=== PATIENT | female | born 1975 | race Caucasian/White ===

== ENCOUNTER 2021-08-22 01:33 | Emergency (ER) | payer OTHER, SELFPAY ==
[2021-08-22 01:34] VITALS: BP 134/89; PULSE 66; RESP 18; TEMP 36.4; O2SAT 100; BMI 26.6
--- NOTE | 2021-08-22 07:52 | EDS_ITS ---
HPI History of Present Illness Chief Complaint: Dizziness Narrative Narrative: Patient is a 46-year-old female with history of trigeminal neuralgia who takes carbamazepine. She states ever since starting this medication she is had a low sodium value. She states that her value typically runs approximately 123. She states today she was outside working in the yard in the hot weather and began to get lightheaded and dizzy. She states that she went inside but because there was no power she did not have a reprieve from the symptoms and whether. She states she tried drinking pickle juice to increase her salt intake as this is helped in the past but there was no improvement and therefore she was advised to come to the hospital for evaluation [facility] Medical History Hyponatremia Home Medications carbamazepine 300 mg capsule,extended release [id number] 300 mg PO BID 08/22/21 [History Last Taken Unknown] Allergy/AdvReac Type Severity Reaction Status Date / Time codeine AdvReac Vomiting Verified 08/22/21 01:38 Social History Smoking Status: Current every day smoker tobacco type: cigarettes ROS ROS ED Constitutional Constitutional ED: Denies chills or fever(s) ENT ENT ED: Denies sore throat Cardiovascular Cardiovascular: Denies chest pain Respiratory/Chest Respiratory/Chest: Denies cough or dyspnea Gastrointestinal Gastrointestinal: Reports nausea; Denies abdominal pain, diarrhea or vomiting Genitourinary Genitourinary ED: Denies dysuria Musculoskeletal Musculoskeletal: Denies myalgias Integumentary Denies rash Neurologic Neurologic: Reports other Details: Positive dizziness ; Denies headache(s) Psychiatric Psychiatric: Reports anxiety Hematologic/Lymphatic Hematologic/Lymphatic: Denies easy bleeding or easy bruising EXAM Physical Exam Const Vital Signs: 08/22/21 01:34 08/22/21 01:38 Temperature 97.5 F L Temperature Source Oral Pulse Rate 66 Respiratory Rate 18 Respiratory Effort Normal Non-Labored Respiratory Pattern Normal Blood Pressure 134/89 H Blood Pressure Mean 104 Pulse Ox 100 Oxygen Delivery Method Room Air Positive well nourished and well developed General Appearance ED: well developed HEENT Reports TM's clear and dry mucous membranes Tympanic Membrane ED: Yes TM's clear Mouth ED: Yes dry mucous membranes Mouth: dry mucous membranes Eyes PERRL and EOMs intact bilaterally Neck supple Resp normal respiratory effort and clear to auscultation bilaterally Cardio regular rate and regular rhythm GI normal to inspection, nondistended, normoactive bowel sounds, non-tender and non-distended Auscultation: normoactive bowel sounds Palpation: soft Extremity normal to inspection Neuro oriented x3 and CN's II-XII intact bilaterally Neuro Narrative: Cranial nerves II through XII are grossly intact without focal neurologic deficits. No truncal ataxia no pronator drift no dysmetria. There is mild horizontal nystagmus noted. NIH stroke scale score of 0 Sensorium / Orientation: alert Psych mental status grossly normal Skin no rashes or lesions noted Skin Narrative: Skin turgor slightly increased MDM MDM MDM Narrative Medical decision making narrative: Patient presented to the ER in no acute distress with no focal neurologic deficit. With her history of hyponatremia there was concern this was a cause of her symptoms so basic blood work was obtained and she was given IV fluids. The patient sodium came back low at 118 however she states her baseline is approximately 123. Therefore she is only 5 points off what she reports as her normal. She was given 2 L of normal saline and did report feeling better. She was able to ambulate with a steady gait and her neuro exam remained normal. We discussed possible admission based on her hyponatremia but as she was only 5 points off her baseline and now has resolution of symptoms with IV fluids I do not feel it is necessary for patient to be admitted. Patient does agree with this plan and wishes to return home as well. Therefore patient will be provided Zofran to help with any further bouts of nausea but as she is able to walk with a steady gait has resolution of symptoms and persistently normal neuro exam she will be discharged home Discharge Plan Triage Chief Complaint: Dizziness ED Provider: Jonathon Soliman Dx/Rx/DC Orders Clinical Impression: Hyponatremia, Dizziness Prescriptions: No Action carbamazepine 300 mg capsule, ER multiphase 12 hr 300 mg PO BID Label Comments: TAKE 1 CAPSULE BY MOUTH TWICE DAILY Primary Care Provider: Jose Miguel Holland Referrals: Jose Miguel Holland MD [Primary Care Provider] - Disposition Disposition: Home, Self Care Discharge Date/Time: 08/22/21 04:50
[2021-08-22 12:09] LABS: Hematocrit 34.6 % (37-47); Hemoglobin 12.8 g/dL (12.0-15.0); Mean Corpuscular Volume 86.5 fL (81-99); Mean Platelet Vol. 9.2 fl (6.2-12.0); Platelet Count 215 K/mm3 (150-450); RBC Distribution Width CV 11.6 % (11.6-14.6); RBC Distribution Width SD 37.2 fl (35.1-43.9); White Blood Count 7.4 K/mm3 (4.4-11.0)
[2021-08-22 12:10] LABS: Absolute Lymphocyte Count 1.51 X10^3/uL (0.83-4.51); Absolute Neutrophil Count 5.4 X10^3/uL (2.0-7.7); Basophil# 0.02 X10^3/uL; Basophil% 0.3 % (0-1); Eosinophil# 0.04 X10^3/uL; Eosinophils% 0.5 % (0-5); Lymphocyte # 1.51 X10^3/ul (0.83-4.51); Lymphocyte % 20.4 % (19-41); Monocyte# 0.41 X10^3/uL; Monocyte% 5.5 % (0-10); NRBC Flagged by Analyzer 0 % (0-5)
[2021-08-22 12:47] LABS: BUN 6 mg/dL (7-18); BUN/Creat Ratio 9.8 RATIO (10-20); Calcium,Total 8.2 mg/dL (8.5-10.1); Creatinine, Serum 0.61 mg/dL (0.55-1.02); EST Glomerular Filtration Rate 111 mL/min (>60); Est Glom Filt Rate - Afr Amer 135 mL/min (>60); Estimated Creatinine Clearance 101.49 ml/min; Glucose 106 mg/dL (74-106); Magnesium 1.5 mg/dL (1.6-2.6)
[2021-08-22 12:48] LABS: Anion Gap 10 (5-15); Chloride 86 mmol/L (98-107); Potassium 3.3 mmol/L (3.5-5.1); Sodium Level 118 mmol/L (136-145)
== END 2021-08-22 04:50 | disposition home or self-care (01) ==
PROVIDERS: Emergency Provider Emergency Medicine; PCP Family Medicine; Visit Provider Emergency Medicine
DX: E87.1 Hypo-osmolality and hyponatremia (principal); F17.210 Nicotine dependence, cigarettes, uncomplicated; G50.0 Trigeminal neuralgia; Z79.899 Other long term (current) drug therapy
CPT/HCPCS: 80048; 83735; 85025; 96361; 96374; 99283; J7030; A4216; J2405

== ENCOUNTER 2021-10-20 21:07 | Emergency (ER) | payer OTHER, SELFPAY ==
[2021-10-20 21:08] VITALS: BP 145/82; PULSE 72; RESP 15; TEMP 36.4; O2SAT 100; O2SAT 98; BMI 30.4
--- NOTE | 2021-10-20 21:38 | EKG12_ITS ---
Test Reason : CP Blood Pressure : / mmHG Vent. Rate : 073 BPM Atrial Rate : 073 BPM P-R Int : 176 ms QRS Dur : 074 ms QT Int : 384 ms P-R-T Axes : 033 059 017 degrees QTc Int : 423 ms Normal sinus rhythm Nonspecific ST and T wave abnormality Confirmed by JOANNA LEON, HOMAR ([id number]), photo editor JEREMI BEARD ([id number]) on 10/22/2021 10:04:42 AM Referred By: JAMILA Confirmed By:HOMAR MARSHALL MD
--- NOTE | 2021-10-20 21:47 | EX.ED.DYSGE1 ---
HPI History of Present Illness Chief Complaint: Chest Pain Informant: patient Narrative Narrative: 46-year-old female states that today while garage sailing she would get intermittent left anterior chest pain described as a pinch. It was not debilitating so she continued on her day. Around 2000 hours she was sitting down for dinner when she got a wave of warmth up her neck and into her head. Traveled down her arms and she became acutely nauseous. She states that sensation in her chest continued. She did not vomit. She notes that if she takes a deep breath she feels that pinch sensation recur. She notes that chest is not tender and is not made worse with movement. She notes that she has a dental abscess and was wondering about antibiotics as she has a dentist appointment on the . She denies any fevers. She is not having any trismus. She notes that she has a history of hyponatremia. She is on Tegretol for trigeminal neuralgia. PFSH PFSH Medical History Hyponatremia Smoker Home Medications carbamazepine 300 mg capsule,extended release [id number] 300 mg PO BID 08/22/21 [History Last Taken Unknown] penicillin V potassium 250 mg tablet 500 mg PO 4X/DAY #40 tabs 10/20/21 [Rx Last Taken Unknown] promethazine 25 mg tablet 25 mg PO Q6H PRN PRN Nausea #20 TABLETS 10/20/21 [Rx Last Taken Unknown] Allergy/AdvReac Type Severity Reaction Status Date / Time codeine AdvReac Vomiting Verified 10/20/21 21:08 Social History (Updated 10/20/21 @ 21:[address] Mick Pardo, DO) Smoking Status: Current every day smoker tobacco type: cigarettes substance use type: does not use ROS ROS ED Constitutional Constitutional ED: Denies chills or weight loss Eyes Eyes: Denies change in vision or diplopia ENT ENT ED: Reports other Details: Dental abscess ; Denies ear pain, rhinorrhea or sore throat Cardiovascular Cardiovascular: Reports chest pain; Denies orthopnea, palpitations or racing heartbeat Respiratory/Chest Respiratory/Chest: Denies cough, dyspnea or orthopnea Gastrointestinal Gastrointestinal: Reports nausea; Denies abdominal pain, diarrhea or vomiting Genitourinary Genitourinary ED: Denies dysuria, hematuria or urinary frequency Musculoskeletal Musculoskeletal: Denies arthralgias or myalgias Integumentary Denies abscess or rash Neurologic Neurologic: Reports paresthesias; Denies headache(s) or weakness Psychiatric Psychiatric: Denies anxiety, depression, suicidal ideation or suicidal thoughts Endocrine Endocrinology: Denies polydipsia, polyphagia or polyuria Allergic/Immunologic Allergic/Immunologic ED: Denies mouth swelling, tongue swelling or urticaria EXAM Physical Exam Const Vital Signs: 10/20/21 21:08 10/20/21 21:08 Temperature 97.5 F L Temperature Source Temporal Pulse Rate 72 72 Respiratory Rate 15 15 Blood Pressure 145/82 H 145/82 H Blood Pressure Mean 103 103 Pulse Ox 100 98 Oxygen Delivery Method Room Air Room Air Positive well nourished and well developed General Appearance ED: well developed HEENT Reports normocephalic, head/scalp atraumatic and moist mucous membranes HEENT Narrative: Patient has multiple teeth that are missing. The remaining teeth to show evidence of significant decay. Right lower most likely a premolar remnant shows tenderness to palpation. There is swelling along the gumline but no fluctuance. There is no trismus. Floor the mouth is soft. Eyes PERRL and EOMs intact bilaterally Neck no lymphadenopathy, supple and no JVD Resp normal respiratory effort and clear to auscultation bilaterally Cardio regular rate, regular rhythm and no murmurs GI normal to inspection, nondistended, normoactive bowel sounds and non-tender Palpation: soft Back/Spine no CVA tenderness and normal ROM Extremity normal to inspection General Extremety ED: Negative for edema General Extremity: Negative for edema Neuro oriented x3 and CN's II-XII intact bilaterally Sensorium / Orientation: alert Motor Exam: strength 5/5 throughout Psych mental status grossly normal Mood & Affect: Negative for depressed or tearful Skin no rashes or lesions noted and no wounds MDM MDM MDM Narrative Medical decision making narrative: CBC BMP showed glucose 125. Sodium 124 chloride of 92. D-dimer 0.31 and troponin is 4. By interpretation of the chest x-ray is no acute process. Patient has had no events on the monitor. She still nauseated and her redosed her with Zofran. She does have a prescription for Zofran at home. Also going to write her for her to have penicillin. Lab Data Attestation: I reviewed the patient's lab results. Labs: Laboratory Results - last 24 hr 08/13/22 08/13/22 08/13/22 21:25 21:25 21:25 WBC 6.9 RBC 3.92 L Hgb 12.3 Hct 34.8 L MCV 88.8 MCH 31.4 MCHC 35.3 RDW Std Deviation 38.8 RDW Coeff of Huang 12.0 Plt Count 207 MPV 9.0 Immature Gran % (Auto) 0.400 Neut % (Auto) 59.0 Lymph % (Auto) 32.9 [place] % (Auto) 6.2 Eos % (Auto) 1.2 Baso % (Auto) 0.3 Absolute Neuts (auto) 4.1 Absolute Lymphs (auto) 2.27 Nucleated RBC % 0 D-Dimer Quant (PE/DVT) 0.31 Sodium 124 L Potassium 3.2 L Chloride 92 L Carbon Dioxide 23.0 Anion Gap 9 BUN 7 Creatinine 0.63 Estim Creat Clear Calc 98.27 Est GFR (MDRD) Af Amer 130 Est GFR (MDRD) Non-Af 107 BUN/Creatinine Ratio 11.1 Glucose 125 H Calcium 8.1 L Total Bilirubin 0.50 AST 17 ALT 20 Alkaline Phosphatase 58 Troponin I High Sens 4 Total Protein 6.1 L Albumin 3.5 Globulin 2.6 Albumin/Globulin Ratio 1.3 Radiography Diagnostic Testing: Clinical Impression(s) from Imaging Studies Chest X-Ray 10/20/21 22:05 IMPRESSION: Normal x-ray examination of the chest. Electronically Signed: Tre Jorge MD at 22:19 EDT , EKG Initial EKG: Attestation: I personally reviewed and interpreted this EKG as follows: Discharge Plan Triage Chief Complaint: Chest Pain ED Provider: Mick Pardo Dx/Rx/DC Orders Clinical Impression: Abscess, dental, Chest pain, Vasovagal episode, Nausea Instructions: ED Chest Pain, Uncertain Cause, ED Near-Fainting- Vagal Reaction Prescriptions: New penicillin V potassium 250 mg tablet 500 mg PO 4X/DAY Qty: 40 0RF promethazine [promethazine] 25 mg tablet 25 mg PO Q6H PRN PRN (Reason: Nausea) Qty: 20 0RF No Action carbamazepine 300 mg capsule, ER multiphase 12 hr 300 mg PO BID Label Comments: TAKE 1 CAPSULE BY MOUTH TWICE DAILY Primary Care Provider: Jose Miguel Holland Referrals: Jose Miguel Holland MD [Primary Care Provider] -
[2021-10-20 21:49] LABS: Absolute Lymphocyte Count 2.27 X10^3/uL (0.83-4.51); Absolute Neutrophil Count 4.1 X10^3/uL (2.0-7.7); Basophil# 0.02 X10^3/uL; Basophil% 0.3 % (0-1); Eosinophil# 0.08 X10^3/uL; Eosinophils% 1.2 % (0-5); Hematocrit 34.8 % (37-47); Hemoglobin 12.3 g/dL (12.0-15.0); Lymphocyte # 2.27 X10^3/ul (0.83-4.51); Lymphocyte % 32.9 % (19-41); Mean Corp Hgb Conc 35.3 g/dL (32-36); Mean Corpuscular Hgb 31.4 pg (27.0-32.0); Mean Corpuscular Volume 88.8 fL (81-99); Monocyte# 0.43 X10^3/uL; Monocyte% 6.2 % (0-10); NRBC Flagged by Analyzer 0 % (0-5); Neutrophil # 4.08 X10^3/uL (2.7-7.7); Platelet Count 207 K/mm3 (150-450); RBC Distribution Width SD 38.8 fl (35.1-43.9); Red Blood Count 3.92 M/mm3 (4.2-5.4); White Blood Count 6.9 K/mm3 (4.4-11.0)
[2021-10-20] MEDS: Penicillin Vk 250 MG Tablet 500 MG PO (21:50)
[2021-10-20] MEDS: Ondansetron 4 MG/2 ML Vial IV ×2 (21:50→22:54)
--- NOTE | 2021-10-20 22:05 | RAD_ITS ---
STUDY: X-RAY CHEST REASON FOR EXAM: Female, 46 years old. chest pain TECHNIQUE: Single AP portable view of the chest. COMPARISON: None. FINDINGS: The lungs are clear and expanded. There is no demonstrated pleural abnormality. Normal size heart. Normal mediastinum and usman. Normal visualized pulmonary arteries. Normal visualized aortic arch and descending thoracic aorta. Normal visualized thoracic spine. Normal visualized ribs, clavicles, and shoulders. There is no demonstrated abnormality of the visualized soft tissue structures of the upper abdomen. RAD/Chest 1 View (Portable) IMPRESSION: Normal x-ray examination of the chest. Electronically Signed: Tre Jorge MD at 22:19 EDT ,
[2021-10-20 22:11] LABS: D-Dimer Quantitative (DVT/PE) 0.31 FEU/ug/m (0.27-0.49)
[2021-10-20 22:12] LABS: ALB/GLOB Ratio 1.3 RATIO (0.9-2.4); AST(SGOT) 17 U/L (15-37); Alanine Aminotransfer ALT/SGPT 20 U/L (13-56); Albumin, Serum 3.5 g/dL (3.2-5.0); Alkaline Phosphatase 58 U/L (45-117); Anion Gap 9 (5-15); BUN 7 mg/dL (7-18); BUN/Creat Ratio 11.1 RATIO (10-20); Calcium,Total 8.1 mg/dL (8.5-10.1); Chloride 92 mmol/L (98-107); Creatinine, Serum 0.63 mg/dL (0.55-1.02); EST Glomerular Filtration Rate 107 mL/min (>60); Est Glom Filt Rate - Afr Amer 130 mL/min (>60); Estimated Creatinine Clearance 98.27 ml/min; Globulin 2.6 g/dL (2.2-4.2); Glucose 125 mg/dL (74-106); Potassium 3.2 mmol/L (3.5-5.1); Protein, Total 6.1 g/dL (6.4-8.2); Sodium Level 124 mmol/L (136-145); Troponin-I HS 4 pg/mL (3.0-54.0)
[2021-10-20 22:53] VITALS: BP 118/91; PULSE 65; RESP 14; RESP 18; O2SAT 98; O2SAT 99
--- NOTE | 2021-10-20 22:53 | NURSING ---
CRISIS CALLED AT [id number].
[2021-10-20] MEDS: proMETHazine 25 MG Tablet PO (22:54)
== END 2021-10-20 23:00 | disposition home or self-care (01) ==
PROVIDERS: Emergency Provider Emergency Medicine; PCP Family Medicine; Visit Provider Emergency Medicine
DX: K04.7 Periapical abscess without sinus (principal); R07.9 Chest pain, unspecified; R55 Syncope and collapse; G50.0 Trigeminal neuralgia; F17.210 Nicotine dependence, cigarettes, uncomplicated; Z79.899 Other long term (current) drug therapy
CPT/HCPCS: 71045; 80053; 84484; 85025; 85379; 93005; 96374; 96376; 99285; A4216; J2405

== ENCOUNTER 2023-06-20 15:23 | Emergency (ER) | payer OTHER, SELFPAY ==
[2023-06-20 15:23] VITALS: BP 130/81; PULSE 118; RESP 18; TEMP 35.9
[2023-06-20 15:24] VITALS: BP 130/81; PULSE 118; RESP 18; TEMP 35.9; TEMP 37.1; O2SAT 98
--- NOTE | 2023-06-20 15:44 | CT_ITS ---
STUDY: CT ABDOMEN AND PELVIS WITH CONTRAST REASON FOR EXAM: Female, 48 years old. abdominal pain, fever RADIATION DOSAGE (If Supplied By Facility): CTDIvol = ( 10.74 ) mGy, DLP = ( 718.13 ) mGycm TECHNIQUE: Transaxial images were obtained from the dome of the diaphragm to the symphysis pubis without oral contrast. IV 100mL Isovue-300 was administered. Sagittal and coronal images were reconstructed. Individualized dose optimization techniques were used for this CT. COMPARISON: None. FINDINGS: The visualized lung bases are unremarkable. The visualized portions of the heart are within normal limits. Normal liver. Multiple gallstones noted. Normal spleen. Normal pancreas. Normal bilateral adrenal glands. 2.2 cm simple right renal cortical cyst. No further follow-up required as it appears simple/benign. Normal left kidney. Normal visualized stomach. Normal small intestine. Normal colon. The appendix is visualized and appears normal. Normal abdominal aorta. Normal inferior vena cava. Normal retroperitoneum. Normal urinary bladder. Uterus normal. Normal abdominal wall. Grade 1 spondylolisthesis and spondylolysis L5-S1. CT/Abdomen/Pelvis W IV Cont ONLY IMPRESSION: Cholelithiasis. Recommend gallbladder ultrasound. Electronically Signed: Luke Levy MD at 16:51 EDT ,
--- NOTE | 2023-06-20 15:45 | ED.VIS.GI ---
HPI HPI - GI History of Present Illness Chief Complaint: Diarrhea Detail of Chief Complaint: Diarrhea Informant: patient Narrative Narrative: Patient presents with diarrhea that initially started about 10 days ago after she started cefdinir for sinus infection. Patient had been on the antibiotic for about 4 days when the diarrhea started. Initially was watery but now seems maybe a little bit less with some formed stool. Today she developed a fever up to 101.3. She had some nausea and some mild lower abdominal pain. Patient states that her respiratory symptoms improved but then they started to get worse again. PFSH PFSH Medical History Hyponatremia Infected dental caries Smoker Home Medications carbamazepine 300 mg capsule,extended release [id number] 300 mg PO BID 08/22/21 [History Last Taken Unknown] vancomycin 125 mg capsule (Vancocin) 125 mg PO Q6H #40 caps 06/20/23 [Rx Last Taken Unknown] Allergy/AdvReac Type Severity Reaction Status Date / Time codeine AdvReac Vomiting Verified 06/20/23 15:24 Social History Smoking Status: Current every day smoker tobacco type: cigarettes substance use type: does not use ROS ROS ED Review of Systems ROS Unobtainable: other Constitutional Constitutional ED: Reports lethargy; Denies chills, fever(s), sweats or weight loss Eyes Eyes: Denies blurry vision, change in vision or diplopia ENT ENT ED: Denies rhinorrhea or sore throat Cardiovascular Cardiovascular: Denies chest pain, orthopnea or racing heartbeat Respiratory/Chest Respiratory/Chest: Reports cough; Denies dyspnea, dyspnea on exertion, orthopnea or sputum Gastrointestinal Gastrointestinal: Reports abdominal pain, diarrhea and nausea; Denies vomiting Genitourinary Genitourinary ED: Denies dysuria, hematuria or urinary frequency Musculoskeletal Musculoskeletal: Denies arthralgias, back pain, myalgias or neck pain Integumentary Denies abscess, Abrasions or rash Neurologic Neurologic: Denies headache(s) or weakness Psychiatric Psychiatric: Denies anxiety, depression or suicidal thoughts Endocrine Endocrinology: Denies polydipsia, polyphagia or polyuria Hematologic/Lymphatic Hematologic/Lymphatic: Denies easy bleeding, easy bruising or lymphadenopathy Allergic/Immunologic Allergic/Immunologic ED: Denies mouth swelling, tongue swelling or urticaria EXAM Physical Exam Const Vital Signs: 06/20/23 15:24 06/20/23 15:23 06/20/23 15:24 Temperature 96.6 F L 96.6 F L 98.7 F Temperature Source Temporal Temporal Temporal Pulse Rate 118 H 118 H 118 H Respiratory Rate 18 18 18 Blood Pressure 130/81 H 130/81 H 130/81 H Blood Pressure Mean 97 97 97 Pulse Ox 98 Oxygen Delivery Method Room Air Positive well nourished and well developed General Appearance ED: well developed and NAD HEENT Reports TM's clear and moist mucous membranes normocephalic and atraumatic; Negative for trauma or tenderness Tympanic Membrane ED: Yes TM's clear Eyes PERRL and EOMs intact bilaterally General Eye ED: Negative for pale conjunctiva or scleral icterus Neck no lymphadenopathy, supple and no JVD General: Negative for tenderness Chest Wall inspection of chest normal and palpation of chest normal Chest: Negative for tenderness Resp normal respiratory effort and clear to auscultation bilaterally Effort and Inspection: Negative for respiratory distress or pain with movement Auscultation: Negative for rhonchi, wheezes or diminished lung sounds Cardio regular rate, regular rhythm, S1 normal heart sound, S2 normal heart sound and no murmurs Peripheral Pulses: pulses 2+ throughout GI normal to inspection, nondistended, normoactive bowel sounds, soft to palpation, non-distended and no masses GI Narrative: Mild diffuse tenderness over left lower quadrant with some guarding. There is no rebound, rigidity, or pineal signs. Rectal exam performed and there was no impaction or significant stool within the rectal vault. Stool was brown. Back/Spine no CVA tenderness and no thoracic nor lumbar tenderness Extremity normal to inspection General Extremety ED: Negative for edema General Extremity: Negative for edema Neuro oriented x3, CN's II-XII intact bilaterally, no sensory deficits noted and gait normal Sensorium / Orientation: awake, alert, oriented to person, oriented to place and oriented to time Motor Exam: strength 5/5 throughout and strength abnormal Psych mental status grossly normal Skin no rashes or lesions noted and no wounds MDM MDM MDM Narrative Medical decision making narrative: Patient presents with diarrhea and abdominal pain and fever today. In the differential would be C. difficile versus enteric pathogen. Given her left lower quadrant abdominal pain was concerned about diverticulitis. IV line established. CBC with differential obtained showed an elevated white count of 21,000 with hemoglobin 14 and platelet count of 245. Chemistries unremarkable. Sodium was slightly depressed at 129. Urinalysis unremarkable. Patient had C. difficile testing on stool and was positive. CT scan of the abdomen pelvis initially obtained showed gallstones and recommended getting an ultrasound of the gallbladder which was performed which again showed gallstones but no evidence of cholecystitis. Clinically she looks well. We discussed admission for IV hydration and antibiotics however she would like to go home and does not want to be admitted. Patient will be started on vancomycin and I gave her her first dose p.o. here. Lab Data Attestation: I reviewed the patient's lab results. Labs: Laboratory Results - last 24 hr 06/20/23 06/20/23 15:50 16:00 WBC 21.2 H RBC 4.74 Hgb 14.4 Hct 41.9 MCV 88.4 MCH 30.4 MCHC 34.4 RDW Std Deviation 39.3 RDW Coeff of Huang 12.1 Plt Count 245 MPV 9.2 Immature Gran % (Auto) 0.600 Neut % (Auto) 90.7 H Lymph % (Auto) 4.3 L [place] % (Auto) 4.2 Eos % (Auto) 0.0 Baso % (Auto) 0.2 Absolute Neuts (auto) 19.2 H Absolute Lymphs (auto) 0.90 Nucleated RBC % 0 Sodium 129 L Potassium 3.5 Chloride 99 Carbon Dioxide 23.0 Anion Gap 7 BUN 7 Creatinine 0.78 Estim Creat Clear Calc 88.02 Est GFR (MDRD) Af Amer 100 Est GFR (MDRD) Non-Af 83 BUN/Creatinine Ratio 8.9 L Glucose 103 Lactic Acid 1.6 Calcium 8.8 Urine Color Straw Urine Clarity Clear Urine pH 6.5 Ur Specific [place] 1.010 Urine Protein Negative Urine Glucose (UA) Normal Urine Ketones 5 H Urine Occult Blood 25 H Urine Nitrite Negative Urine Bilirubin Negative Urine Urobilinogen Normal Ur Leukocyte Esterase Negative Urine RBC 0 SEEN Urine WBC 0 SEEN Ur Squamous Epith Cells 0-5 SEEN Urine Bacteria 0 SEEN Urine Mucus 0 SEEN Radiography Diagnostic Testing: Clinical Impression(s) from Imaging Studies Abdomen/Pelvis CT 06/20/23 15:44 IMPRESSION: Cholelithiasis. Recommend gallbladder ultrasound. Electronically Signed: Luke Levy MD at 16:51 EDT , Gallbladder Ultrasound 06/20/23 17:01 IMPRESSION: Cholelithiasis without evidence of cholecystitis or common bile duct obstruction Electronically Signed: Luke Levy MD at 18:20 EDT Reading Location ID and State: [address] [place] [address] Tel , Service support , Discharge Plan Triage Chief Complaint: Diarrhea ED Provider: Adria Yin Dx/Rx/DC Orders Clinical Impression: C. difficile colitis, Diarrhea Instructions: Clostridium Difficile Infection, What Is C. Diff? Prescriptions: New vancomycin [Vancocin] 125 mg capsule 125 mg PO Q6H Qty: 40 0RF No Action carbamazepine 300 mg capsule, ER multiphase 12 hr 300 mg PO BID Patient Comments: TAKE 1 CAPSULE BY MOUTH TWICE DAILY Primary Care Provider: Care Physician,No Primary Referrals: Jose Miguel Holland MD [Non-Staff] - Soto Saba MD [Med Staff - Active Staff] - 5-7 Days Disposition Disposition: Home, Self Care
[2023-06-20 16:00] LABS: Bacteria 0 SEEN /hpf (None Seen); Mucous, Urine 0 SEEN /hpf (<or=2+); Red Blood Cells-Urine 0 SEEN /hpf (0-5); White Blood Cells 0 SEEN /hpf (0-5)
[2023-06-20 16:01] LABS: Color, Urine Straw (Yellow); Glucose, Dipstick Normal (Normal); Ketone-Dipstick 5 mg/dl (Negative); Leukocyte Esterase-Dipstick Negative /ul (Negative); Nitrite-Dipstick Negative (Negative); Occult Blood-Urine 25 /ul (Negative); Protein-Dipstick Negative (Negative); Urine Bilirubin Dipstick Negative (Negative); Urine Clarity Clear (Clear); Urine Urobilinogen Normal (Normal); Urine pH 6.5 (5.0 - 8.0)
[2023-06-20] MEDS: 0.9% Normal Saline (1000mL) 1,000 ML 1000 ML IV (16:02)
[2023-06-20] MEDS: Ondansetron 4 MG/2 ML Vial IV (16:02)
[2023-06-20 16:06] LABS: Absolute Neutrophil Count 19.2 X10^3/uL (2.0-7.7); Basophil# 0.04 X10^3/uL; Basophil% 0.2 % (0-1); Eosinophil# 0.01 X10^3/uL; Hematocrit 41.9 % (37-47); Hemoglobin 14.4 g/dL (12.0-15.0); Lymphocyte % 4.3 % (19-41); Mean Corp Hgb Conc 34.4 g/dL (32-36); Mean Corpuscular Hgb 30.4 pg (27.0-32.0); Mean Corpuscular Volume 88.4 fL (81-99); Mean Platelet Vol. 9.2 fl (6.2-12.0); Monocyte# 0.89 X10^3/uL; Monocyte% 4.2 % (0-10); NRBC Flagged by Analyzer 0 % (0-5); Neutrophil # 19.18 X10^3/uL (2.7-7.7); Neutrophil % 90.7 % (47-70); Platelet Count 245 K/mm3 (150-450); RBC Distribution Width CV 12.1 % (11.6-14.6); RBC Distribution Width SD 39.3 fl (35.1-43.9); Red Blood Count 4.74 M/mm3 (4.2-5.4); White Blood Count 21.2 K/mm3 (4.4-11.0)
[2023-06-20 16:15] LABS: Squamous Epithelial Cells - UA 0-5 SEEN /hpf (5-10)
[2023-06-20 16:28] LABS: Anion Gap 7 (5-15); BUN 7 mg/dL (7-18); BUN/Creat Ratio 8.9 RATIO (10-20); Calcium,Total 8.8 mg/dL (8.5-10.1); Chloride 99 mmol/L (98-107); Creatinine, Serum 0.78 mg/dL (0.55-1.02); EST Glomerular Filtration Rate 83 mL/min (>60); Est Glom Filt Rate - Afr Amer 100 mL/min (>60); Estimated Creatinine Clearance 88.02 ml/min; Glucose 103 mg/dL (74-106); Potassium 3.5 mmol/L (3.5-5.1); Sodium Level 129 mmol/L (136-145)
[2023-06-20 16:36] LABS: Lactic Acid 1.6 mmol/L (0.4-1.9)
--- NOTE | 2023-06-20 17:01 | US_ITS ---
STUDY: ABDOMINAL ULTRASOUND - RIGHT UPPER QUADRANT REASON FOR VISIT: Female, 48 years old abdominal pain TECHNIQUE: Ultrasound evaluation of the right upper quadrant was performed with real-time and static villalta-scale imaging. TECHNICAL QUALITY: Adequate. COMPARISON: CT abdomen and pelvis June 20, 2023 FINDINGS: Liver: The liver measures 16.3 cm. There is normal echogenicity of the liver. The bile ducts are within normal limits. There is hepatic color flow. The direction of portal flow is hepatopetal. There is no demonstrated mass lesion. Gallbladder: Normal distended gallbladder. The gallbladder wall measures 1.3 mm. There is a negative sonographic Arita''s sign. There is no pericholecystic fluid. Multiple gallstones. Common Bile Duct (C.B.D.): The common bile duct measures 3.9 mm. Pancreas: Normal size of the head, body and tail of the pancreas. There is normal echogenicity of the pancreas. Tail is not well visualized due to bowel gas. Right Kidney: Normal size of the right kidney. The right kidney measures 11 cm. Normal renal cortex. The right cortex measures 1 cm. Simple cyst measures 1.8 x 2.2 x 1.7 cm. There is no right hydronephrosis. US/Gallbladder IMPRESSION: Cholelithiasis without evidence of cholecystitis or common bile duct obstruction Electronically Signed: Luke Levy MD at 18:20 EDT ,
[2023-06-20] MEDS: Vancomycin 125 MG/5 ML Susp PO.SYRINGE PO (18:13)
[2023-06-20 18:58] VITALS: BP 110/80; PULSE 100; RESP 19; TEMP 37.2; O2SAT 97
[2023-06-20 19:08] LABS: AST(SGOT) 19 U/L (15-37); Alanine Aminotransfer ALT/SGPT 19 U/L (13-56); Albumin, Serum 4.1 g/dL (3.2-5.0); Alkaline Phosphatase 75 U/L (45-117); Bilirubin, Direct 0.24 mg/dL (0.00-0.30); Globulin 3.3 g/dL (2.2-4.2); Protein, Total 7.4 g/dL (6.4-8.2)
== END 2023-06-20 19:01 | disposition home or self-care (01) ==
PROVIDERS: Emergency Provider Emergency Medicine; Visit Provider Emergency Medicine
DX: A04.72 Enterocolitis due to Clostridium difficile, not specified as recurrent (principal); F17.210 Nicotine dependence, cigarettes, uncomplicated; K80.20 Calculus of gallbladder without cholecystitis without obstruction
CPT/HCPCS: 74177; 76705; 80048; 80076; 81001; 83605; 85025; 87493; 87506; 87631; 96361; 96374; 99283; J7030; Q9967; A4216; J2405

== ENCOUNTER 2023-06-24 21:01 | Emergency (ER) | payer OTHER, SELFPAY ==
[2023-06-24 21:05] VITALS: BP 146/93; PULSE 95; RESP 18; TEMP 36.7; O2SAT 98; BMI 29.6
[2023-06-24] MEDS: 0.9% Normal Saline (1000mL) 1,000 ML 999 ML IV (22:22)
[2023-06-24 22:24] VITALS: BMI 29.2
[2023-06-24 22:30] LABS: Basophil# 0.03 X10^3/uL; Basophil% 0.5 % (0-1); Eosinophil# 0.08 X10^3/uL; Eosinophils% 1.3 % (0-5); Hematocrit 36.7 % (37-47); Hemoglobin 12.9 g/dL (12.0-15.0); Lymphocyte % 26.1 % (19-41); Mean Corp Hgb Conc 35.1 g/dL (32-36); Mean Corpuscular Hgb 30.3 pg (27.0-32.0); Mean Corpuscular Volume 86.2 fL (81-99); Mean Platelet Vol. 9.3 fl (6.2-12.0); Monocyte# 0.45 X10^3/uL; Monocyte% 7.3 % (0-10); NRBC Flagged by Analyzer 0 % (0-5); Neutrophil # 3.96 X10^3/uL (2.7-7.7); Neutrophil % 64.5 % (47-70); Platelet Count 252 K/mm3 (150-450); RBC Distribution Width CV 12.2 % (11.6-14.6); RBC Distribution Width SD 38.6 fl (35.1-43.9); Red Blood Count 4.26 M/mm3 (4.2-5.4); White Blood Count 6.1 K/mm3 (4.4-11.0)
[2023-06-24 22:42] LABS: Anion Gap 7 (5-15); BUN 3 mg/dL (7-18); BUN/Creat Ratio 4.9 RATIO (10-20); Calcium,Total 8.7 mg/dL (8.5-10.1); Chloride 101 mmol/L (98-107); Creatinine, Serum 0.61 mg/dL (0.55-1.02); EST Glomerular Filtration Rate 110 mL/min (>60); Est Glom Filt Rate - Afr Amer 133 mL/min (>60); Estimated Creatinine Clearance 111.09 ml/min; Glucose 112 mg/dL (74-106); Potassium 3.6 mmol/L (3.5-5.1); Sodium Level 133 mmol/L (136-145)
--- NOTE | 2023-06-24 22:48 | EX.ED.DYSGE1 ---
HPI History of Present Illness Chief Complaint: Allergic Reaction Narrative Narrative: 48-year-old female presenting with concern for allergic reaction. Patient states has taken 16 doses of oral vancomycin since diagnosed with C. difficile. She states her stools are now being formed and are less liquidy. She has some occasional cramping but her abdominal pain is improving. Denies any fevers or chills. She states that approximately 5 hours ago she started to have some mild left-sided pain in her chest which radiated up to the left around the back of her head to the right and up into her scalp and felt like an electric shock. Patient states this only lasted for short while and then resolved. She never had any abdominal pain with it. She was concerned this could possibly due to the vancomycin although she has not any symptoms within the past. She gave a list of food that she is eating and it is crackers, oatmeal, applesauce. She did not think this would elicit any of her symptoms. Patient states that she did have some tingling in her face and her hands however this is resolved. She did not have any facial droop, slurred speech. She denies any problem moving her extremities. Denies any headache. PFSH PFSH Medical History C. difficile colitis Hyponatremia Infected dental caries Smoker Home Medications vancomycin 125 mg capsule (Vancocin) 125 mg PO Q6H #40 caps 06/20/23 [Rx Last Taken Unknown] Allergy/AdvReac Type Severity Reaction Status Date / Time codeine AdvReac Vomiting Verified 06/24/23 21:05 Social History Smoking Status: Current every day smoker tobacco type: cigarettes substance use type: does not use ROS ROS ED Constitutional Constitutional ED: Denies chills, fever(s) or sweats Eyes Eyes: Denies blurry vision or change in vision ENT ENT ED: Denies ear pain or sore throat Cardiovascular Cardiovascular: Reports chest pain; Denies palpitations or racing heartbeat Respiratory/Chest Respiratory/Chest: Denies cough, dyspnea or sputum Gastrointestinal Gastrointestinal: Denies abdominal pain, constipation, diarrhea, nausea or vomiting Genitourinary Genitourinary ED: Denies dysuria, hematuria or urinary frequency Musculoskeletal Musculoskeletal: Denies arthralgias, myalgias or neck pain Integumentary Denies abscess, Abrasions or rash Neurologic Neurologic: Denies headache(s), paresthesias or weakness Psychiatric Psychiatric: Denies anxiety, depression, suicidal ideation or suicidal thoughts Endocrine Endocrinology: Denies polydipsia or polyuria EXAM Physical Exam Const Vital Signs: 06/24/23 21:05 06/24/23 23:22 Temperature 98.1 F 98.2 F Temperature Source Temporal Oral Pulse Rate 95 70 Respiratory Rate 18 18 Blood Pressure 146/93 H 121/82 H Blood Pressure Mean 110 95 Pulse Ox 98 98 Oxygen Delivery Method Room Air Room Air Positive well nourished General Appearance ED: NAD HEENT Reports moist mucous membranes Eyes PERRL and EOMs intact bilaterally Neck no lymphadenopathy Chest Wall inspection of chest normal Resp normal respiratory effort and clear to auscultation bilaterally Auscultation: Negative for rales, rhonchi or wheezes Cardio regular rate and regular rhythm GI normal to inspection, nondistended, normoactive bowel sounds Back/Spine no CVA tenderness Neuro oriented x3 and CN's II-XII intact bilaterally Sensorium / Orientation: alert Psych mental status grossly normal MDM MDM MDM Narrative Medical decision making narrative: Patient presenting with some atypical chest pain that radiated up into her neck around her head and she had some tingling in her head hands. Differential includes ACS although she has no risk factors. Also includes pneumonia, costochondritis, dehydration, anemia, electrolyte normalities, GERD, gastritis, allergic. Considered PE however patient is PERC negative. Will obtain CBC to assess white blood cell count, hemoglobin and platelet. BMP to assess renal function electrodes, glucose. High-sensitivity troponin EKG will be obtained to assess for ischemia/arrhythmia. Chest x-ray to rule out pneumonia. Vital signs currently stable and she is afebrile. Lab work is reassuring as her leukocytosis has improved down to 6.1. Renal function and electrolytes unremarkable. High-sensitivity troponin is 4. EKG patient was given a liter normal saline. EKG on my interpretation shows sinus rhythm at 64 beats minute positive ischemic change or dysrhythmia. Patient workup ultimately normal. She is feeling better as far as her C. difficile goes. I do not believe she needs repeat troponin or further workup. I do believe she can continue to take her vancomycin as she has been tolerating this now for 16 doses. I do not believe I see any signs of allergic reaction. She is well-appearing with normal vitals. Discharged stable condition. Impression: 1. Atypical chest pain 2. History of C. difficile Lab Data Labs: Laboratory Results - last 24 hr 06/24/23 22:20 WBC 6.1 RBC 4.26 Hgb 12.9 Hct 36.7 L MCV 86.2 MCH 30.3 MCHC 35.1 RDW Std Deviation 38.6 RDW Coeff of Huang 12.2 Plt Count 252 MPV 9.3 Immature Gran % (Auto) 0.300 Neut % (Auto) 64.5 Lymph % (Auto) 26.1 [place] % (Auto) 7.3 Eos % (Auto) 1.3 Baso % (Auto) 0.5 Absolute Neuts (auto) 4.0 Absolute Lymphs (auto) 1.60 Nucleated RBC % 0 Sodium 133 L Potassium 3.6 Chloride 101 Carbon Dioxide 25.0 Anion Gap 7 BUN 3 L Creatinine 0.61 Estim Creat Clear Calc 111.09 Est GFR (MDRD) Af Amer 133 Est GFR (MDRD) Non-Af 110 BUN/Creatinine Ratio 4.9 L Glucose 112 H Calcium 8.7 Troponin I High Sens 4 Discharge Plan Triage Chief Complaint: Allergic Reaction Other Complaint: Chest Pain Neuro S/Sx ED Provider: Tyler Aguilera Dx/Rx/DC Orders Instructions: ED Chest Pain, Noncardiac Prescriptions: No Action vancomycin [Vancocin] 125 mg capsule 125 mg PO Q6H Qty: 40 0RF Primary Care Provider: Henny Rahman Referrals: Henny Rahman MD [Primary Care Provider] - Disposition Disposition: Home, Self Care
--- NOTE | 2023-06-24 23:00 | RAD_ITS ---
EXAM: XR CHEST, 1 VIEW CLINICAL INDICATION: CHEST PAIN TECHNIQUE: Frontal view of the chest. COMPARISON: 10/20/2021 FINDINGS: LUNGS AND PLEURAL SPACES: No significant abnormality. No consolidation or edema. No pneumothorax. No effusion. HEART: No significant abnormality. Cardiac silhouette not enlarged. MEDIASTINUM: Central airways and mediastinal contour are unremarkable. BONES/JOINTS: No significant abnormality. No acute fracture. SOFT TISSUES: No significant abnormality. RAD/Chest 1 View (Portable) IMPRESSION: No radiographic evidence of acute cardiopulmonary disease. Electronically Signed: Montrell Douglas DO at 23:20 EDT ,
[2023-06-24 23:22] VITALS: BP 121/82; PULSE 70; RESP 18; TEMP 36.8; O2SAT 98
[2023-06-24 23:57] LABS: Troponin-I HS 4 pg/mL (3.0-54.0)
--- NOTE | 2023-06-25 00:01 | EKG12_ITS ---
Test Reason : DYSRHYTHMIA Blood Pressure : / mmHG Vent. Rate : 064 BPM Atrial Rate : 064 BPM P-R Int : 182 ms QRS Dur : 074 ms QT Int : 420 ms P-R-T Axes : 047 050 025 degrees QTc Int : 433 ms Normal sinus rhythm with sinus arrhythmia Normal ECG Confirmed by CATRACHITO LEON, RUDDY ([id number]), web editor MANISH URIARTE ([id number]) on 06/25/2023 9:19:41 AM Referred By: Confirmed By:RUDDY WINSTON MD
[2023-06-25 00:30] VITALS: BP 126/83; PULSE 72; RESP 18; TEMP 36.3; O2SAT 97
== END 2023-06-25 00:32 | disposition home or self-care (01) ==
PROVIDERS: Emergency Provider Student in an Organized Health Care Education/Training Program; PCP Internal Medicine; Visit Provider Student in an Organized Health Care Education/Training Program
DX: R07.89 Other chest pain (principal); F17.210 Nicotine dependence, cigarettes, uncomplicated; Z86.19 Personal history of other infectious and parasitic diseases
CPT/HCPCS: 71045; 80048; 84484; 85025; 93005; 96360; 99285; J7030; A4216

== ENCOUNTER → 2023-06-27 | Outpatient (CLI) | payer OTHER, SELFPAY ==
[2023-06-27 12:34] LABS: Vitamin B12 1782 pg/mL (211-911); Vitamin D,25 Hydroxy 14.4 ng/mL
[2023-06-27 13:01] LABS: ALB/GLOB Ratio 1.2 RATIO (0.9-2.4); AST(SGOT) 22 U/L (15-37); Alanine Aminotransfer ALT/SGPT 23 U/L (13-56); Albumin, Serum 3.6 g/dL (3.2-5.0); Alkaline Phosphatase 55 U/L (45-117); Anion Gap 5 (5-15); BUN 2 mg/dL (7-18); BUN/Creat Ratio 3.2 RATIO (10-20); Calcium,Total 9.1 mg/dL (8.5-10.1); Chloride 107 mmol/L (98-107); Cholesterol 158 mg/dL (200); Creatinine, Serum 0.63 mg/dL (0.55-1.02); EST Glomerular Filtration Rate 105 mL/min (>60); Est Glom Filt Rate - Afr Amer 128 mL/min (>60); Glucose 101 mg/dL (74-106); High Density Lipoprotein 39 mg/dL; Potassium 4.1 mmol/L (3.5-5.1); Protein, Total 6.6 g/dL (6.4-8.2); Sodium Level 137 mmol/L (136-145); Thyroid Stim Hormone (TSH) 1.13 uIU/mL (0.358-3.74); Triglycerides 94 mg/dL; Very Low Density Lipoprotein 19 mg/dL (5-40)
[2023-06-30 15:08] LABS: Anti-Centromere B Ab <0.2 AI (0.0-0.9); Anti-Chromatin <0.2 AI (0.0-0.9); Anti-Jo <0.2 AI (0.0-0.9); Anti-Nuclear Antibody Test Negative (.); Anti-Scleroderma-70 AB <0.2 AI (0.0-0.9); Anti-dsDNA Ab 2 IU/mL (0-9); RNP Ab <0.2 AI (0.0-0.9); SJOGREN'S Anti-SS-A test < 0.2 AI (0.0-0.9); SJOGREN'S Anti-SS-B test < 0.2 AI (0.0-0.9); Smith Ab <0.2 AI (0.0-0.9)
== END | disposition home or self-care (01) ==
LOC: BIMLAB 09:30
PROVIDERS: PCP Internal Medicine; Referring Provider Internal Medicine; Visit Provider Internal Medicine
DX: Z13.6 Encounter for screening for cardiovascular disorders (principal); R41.9 Unspecified symptoms and signs involving cognitive functions and awareness; E87.1 Hypo-osmolality and hyponatremia
CPT/HCPCS: 36415; 80053; 80061; 82306; 82607; 84443; 86038; 86225; 86235

== ENCOUNTER → 2023-07-11 | Outpatient (CLI) | payer OTHER, SELFPAY ==
[2023-07-11 13:30] LABS: Vitamin B12 910 pg/mL (211-911)
== END | disposition home or self-care (01) ==
LOC: BIMLAB 10:22
PROVIDERS: PCP Internal Medicine; Visit Provider Internal Medicine
DX: R74.8 Abnormal levels of other serum enzymes (principal)
CPT/HCPCS: 36415; 82607

== ENCOUNTER → 2023-08-07 | Outpatient (CLI) | payer OTHER, SELFPAY ==
[2023-08-07 12:07] LABS: Absolute Lymphocyte Count 1.52 X10^3/uL (0.83-4.51); Absolute Neutrophil Count 4.1 X10^3/uL (2.0-7.7); Basophil# 0.03 X10^3/uL; Basophil% 0.5 % (0-1); Eosinophil# 0.09 X10^3/uL; Eosinophils% 1.4 % (0-5); Hematocrit 44.2 % (37-47); Hemoglobin 14.9 g/dL (12.0-15.0); Lymphocyte # 1.52 X10^3/ul (0.83-4.51); Lymphocyte % 24.4 % (19-41); Mean Corp Hgb Conc 33.7 g/dL (32-36); Mean Corpuscular Volume 92.1 fL (81-99); Mean Platelet Vol. 10.6 fl (6.2-12.0); Monocyte# 0.47 X10^3/uL; Monocyte% 7.6 % (0-10); NRBC Flagged by Analyzer 0 % (0-5); Neutrophil % 65.9 % (47-70); Platelet Count 233 K/mm3 (150-450); RBC Distribution Width CV 13.4 % (11.6-14.6); RBC Distribution Width SD 45.8 fl (35.1-43.9); White Blood Count 6.2 K/mm3 (4.4-11.0)
[2023-08-07 12:24] LABS: ALB/GLOB Ratio 1.3 RATIO (0.9-2.4); AST(SGOT) 21 U/L (15-37); Alanine Aminotransfer ALT/SGPT 23 U/L (13-56); Alkaline Phosphatase 70 U/L (45-117); Anion Gap 5 (5-15); BUN 3 mg/dL (7-18); BUN/Creat Ratio 4.5 RATIO (10-20); Calcium,Total 9.4 mg/dL (8.5-10.1); Chloride 104 mmol/L (98-107); Creatinine, Serum 0.66 mg/dL (0.55-1.02); EST Glomerular Filtration Rate 100 mL/min (>60); Est Glom Filt Rate - Afr Amer 121 mL/min (>60); Globulin 3.1 g/dL (2.2-4.2); Glucose 91 mg/dL (74-106); Potassium 4.4 mmol/L (3.5-5.1); Protein, Total 7.1 g/dL (6.4-8.2); Sodium Level 135 mmol/L (136-145)
[2023-08-08 19:07] LABS: Giardia Lamblia, Stool EIA Negative (Negative); H. PYLORI STOOL AG Negative (Negative)
== END | disposition home or self-care (01) ==
LOC: BIMLAB 08:18
PROVIDERS: PCP Internal Medicine; Visit Provider Internal Medicine
DX: R19.4 Change in bowel habit (principal); R10.12 Left upper quadrant pain; A04.72 Enterocolitis due to Clostridium difficile, not specified as recurrent
CPT/HCPCS: 36415; 80053; 85025; 87329; 87338; 87493; 87506

== ENCOUNTER → 2023-08-21 | Outpatient (CLI) | payer OTHER, SELFPAY ==
--- NOTE | 2023-08-21 12:25 | CDU_ITS ---
Reason For Study: atherosclerosis Rt. Velocities/BP Lt. Velocities/BP Prox CCA 88.1/21.1 cm/sec. Prox CCA 74.9/24.8 cm/sec. Mid CCA 91.9/25.8 cm/sec. Mid CCA 84.4/27.7 cm/sec. Dist CCA 88.1/25.8 cm/sec. Dist CCA 71.1/27.7 cm/sec. Prox ICA 57.9/23.9 cm/sec. Prox ICA 53.2/22.0 cm/sec. Mid ICA 64.5/26.7 cm/sec. Mid ICA 75.9/30.5 cm/sec. Dist ICA 67.4/25.8 cm/sec. Dist ICA 96.0/45.4 cm/sec. Rt. ICA/CCA = .7. Lt. ICA/CCA = 1.1. Prox ECA 81.5/18.2 cm/sec. Prox ECA 57.0/10.7 cm/sec. Rt. Vert. 47.4/14.2 cm/sec. Lt. Vert. 57.5/28.9 cm/sec. Right Extracranial There is intimal thickening but no significant atherosclerotic plaque noted in the right common carotid artery. There is intimal thickening but no significant atherosclerotic plaque noted in the right internal carotid artery. There is intimal thickening but no significant atherosclerotic plaque noted in the right external carotid artery. Antegrade flow is noted in the right vertebral artery. Left Extracranial There is intimal thickening but no significant atherosclerotic plaque noted in the left common carotid artery. There is intimal thickening but no significant atherosclerotic plaque noted in the left internal carotid artery. There is intimal thickening but no significant atherosclerotic plaque noted in the left external carotid artery. Antegrade flow is noted in the left vertebral artery. Procedure Carotid Duplex 19383. This is a Carotid Duplex examination using B-mode, color flow and specral Doppler. The exam was diagnostic. Exam performed in department. VL/Carotid Duplex Ultrasound Interpretation Summary Normal right extracranial internal carotid. Normal left extracranial internal carotid. Patent and antegrade vertebrals bilaterally. Ordering Physician: Henny Rahman Referring Physician: Henny Rahman Performed By: Rufino Urena RVT
--- NOTE | 2023-08-21 13:48 | CT_ITS ---
STUDY: CT CHEST WITHOUT CONTRAST REASON FOR EXAM: Female, 48 years old. Screening RADIATION DOSAGE (If Supplied By Facility): CTDIvol = ( 10.01 ) mGy, DLP = ( 258.44 ) mGycm TECHNIQUE: Transaxial imaging was performed without the administration of intravenous contrast material. Multiplanar coronal and sagittal images were reformatted. Individualized dose optimization techniques were used for this CT. COMPARISON: No relevant priors. FINDINGS: CHEST The lungs are normal. There is no demonstrated pleural abnormality. Normal heart and pericardium. Normal mediastinum. Normal hilar regions. Normal unenhanced pulmonary arteries. Normal aorta arch and descending thoracic aorta. Normal osseous structures. Multiple gallstones. CT/Chest WITH Contrast IMPRESSION: Multiple gallstones. The lungs are clear. Electronically Signed: Shant Francois MD at 15:25 EDT ,
--- NOTE | 2023-08-21 15:20 | STRESSREP ---
Stress Test Report Exercise stress test. 48-year-old lady with a history of chest pain Stress protocol: Resting EKG demonstrates normal sinus rhythm with a rate of 55 bpm resting blood pressure is 118/74 mmHg. The patient exercised according to the regular Magan protocol for a total duration of 10 minutes attaining a maximum heart rate of 190 bpm which was 111% of maximum predicted heart rate; the maximum workload was 13.4 metabolic equivalents. At rest there were no ST or T wave changes noted to suggest ischemia and at peak exercise upsloping ST changes only were noted which did not meet the criteria for ischemia. No clinical angina was noted the test was terminated due to the target heart rate being achieved/fatigue. The peak blood pressure was 160/70 mmHg. Rate-pressure product was 28,600. Conclusion: Exercise stress test with no EKG criteria for ischemia at a high workload. No arrhythmias noted.
[2023-08-21 17:02] LABS: Vitamin D,25 Hydroxy 86.4 ng/mL
== END | disposition home or self-care (01) ==
PROVIDERS: PCP Internal Medicine; Referring Provider Internal Medicine; Visit Provider Internal Medicine
DX: E55.9 Vitamin D deficiency, unspecified (principal); R07.9 Chest pain, unspecified; Z12.2 Encounter for screening for malignant neoplasm of respiratory organs; I70.90 Unspecified atherosclerosis
CPT/HCPCS: 36415; 71260; 82306; 93017; 93880; Q9967

== ENCOUNTER 2023-09-23 06:57 | Day surgery (SDC) | payer OTHER, SELFPAY ==
[2023-09-23] VITALS (8 sets, daily range): BP systolic 92–122; BP diastolic 64–76; PULSE 65–93; RESP 16–18; TEMP 36.1–36.6; O2SAT 97–100; BMI 24.5
--- NOTE | 2023-09-23 07:07 | H&P.OPEN ---
[facility] - General General Date of Service: 09/23/23 [facility] Narrative SETH GOFF, is a 48 F who presents for an EGD and colonoscopy due to reflux and change in bowel habits. Patient states the reflux is improved with the famotidine. Patient still has occasional constipation and has not taken any laxatives. Patient has gotten up to 1200 to 1400 james a day for diet. office visit 09/04/23 [facility] HPI: 48-year-old female presents for EGD and colonoscopy due to reflux and change in bowel habits. Patient states in June she had C. difficile did have a recheck of her stool 3 weeks later which was negative after being on the vancomycin. Patient states since having C. difficile her stools are not back to what they were prior states that they are formed but they are quite soft. Patient states she does have bowel movements daily denies any blood. Patient denies any family history of colon cancer. Patient never had previous colonoscopy. Patient has also been having left upper quadrant pain that can radiate to her back about 1-3 times a week denies any changes with eating. Patient is currently on Pepcid 40 mg p.o. daily for the last 2 weeks does not notice a big difference with the pain. Patient denies any symptoms of burning up her esophagus does note to have gallstones on a previous CT scan and ultrasound but denies any right upper quadrant pain after eating. Patient was having issues with dairy around the time she had C. difficile that she eliminated that from her diet and also noticed to have a high B12 that she stopped drinking protein drinks that she was once drinking and states he tries to get 1000 james a day and recently she did get 1200 james in a day. Patient has lost about 31 pounds since June. [facility] Medical History Anxiety Alcohol use History of renal disease Restless legs Migraine headache Asthma Leg cramps History of edema History of stress test Cardiology follow-up encounter History of irregular heartbeat Neck pain Trigeminal neuralgia Vision problems (06/08/22) Gastrointestinal complaints (03/10/13) Frequent headaches (03/10/03) Cataract (06/08/22) Syncope Trigger finger C. difficile colitis Infected dental caries Smoker Home Medications ?Medication ?Instructions ?Recorded ?Last Taken ?Type L.acid,bul,para,rham-B.anim,long 1 cap PO DAILY 06/26/23 Unknown History 10 billion cell-inulin 100 mg capsule (Probitoic Digestive Support (6 strain)) psyllium husk 3.4 gram/5.4 gram 1 tbsp PO DAILY #660 grams 08/07/23 Unknown Rx oral powder (Metamucil) famotidine 40 mg tablet (Pepcid) 40 mg PO QHS 09/16/23 Unknown History Allergy/AdvReac Type Severity Reaction Status Date / Time codeine AdvReac Vomiting Verified 09/16/23 12:21 Family History Mother Age: 70 History of blood clotting disorder Hypertension Thyroid disorder AAA (abdominal aortic aneurysm) Bleeding ulcer Father Gout Social History adopted: No household members: significant other housing: house number of children: 0 current occupational status: employed 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[employer]) current occupational exposures/hazards: No pets and animals: No leisure activities: sports, games, fishing and reading history of recent travel: No sexually active: Yes Smoking Status: Current every day smoker tobacco type: cigarettes Tobacco: How many years used: 34 Electronic Cigarette Use: not used second hand exposure: Yes alcohol intake: current alcohol intake frequency: holidays/special occasions only Alcohol type: beer, wine and hard liquor substance use type: does not use caffeine: Yes what type of physical activity do you participate in: none, walking and other details: metal detector frequency: 1-2 times per week seatbelt use: always do you feel safe at home: Yes Past Medical/Surgical History Planned Operation Planned Operative Procedure(s): Colonoscopy,EGD Previous Hospitalizations/Surgeries HX Hospitalizations: No Any Problems With Anesthesia: No You/Your Family Experience Fever (Hyperthermia) With Anes: No Cholinesterase deficiency: No Cardiovascular Hx Hypertension: No Respiratory Hx Sleep Apnea: No Hx Respiratory Tract Infection/Cold (presently): No Do You Snore Loudly (louder than talking or can be heard): No Do You Often Feel Tired/ Fatigued/ Sleepy Dring Daytime?: No Has Anyone Observed You Stop Breathing During Sleep?: No Result (for STOP score): Negative Smoking Status: Current every day smoker Neurological Does patient have nerve stimulator: No Reproduction : No Allergies codeine Adverse Reaction (Verified 07/09/24 12:21) Vomiting Discharge Is Pt Admitted From a Long-Term, or a Snf: No Who Could Help: [facility] After D/C, Where Do you Plan to Go: Return Home Physical Exam Const alert, oriented x3 and no apparent distress HEENT normocephalic and head/scalp atraumatic Resp normal respiratory effort Cardio regular rate GI soft to palpation and non-tender; Negative for non-distended Palpation: Negative for guarding Extremity no clubbing, cyanosis or edema Skin no rashes or lesions noted Neuro CN's II-XII intact bilaterally Psych mental status grossly normal Assessment & Plan Assessment/Plan (1) Change in bowel habits: (2) Epigastric pain: Surgery Risks - Colonoscopy I discussed with the patient the risks of the procedure: Yes Risks Include but are not Limited To: Plan for an EGD and colonoscopy risks include but are not limited to: Bleeding, perforation requiring further surgery, inability to complete colonoscopy requiring barium enema.
[2023-09-23] MEDS: Lactated Ringers 1,000 ML 15 ML IV (07:32)
--- NOTE | 2023-09-23 08:01 | PRE.ANES_ITS ---
ASA Classification* ASA Classification ASA Classification: 2 Assessment & Plan Anesthesia* Anesthesia Assessment Anesthesia Assessment: Discussed sedation and/or anesthesia options, risks, benefits, and alternatives with patient/parents/legal guardian/POA. Questions invited. The patient/parents/legal guardian/POA seems to understand and agrees to proceed with anesthesia plan. Reviewed the physical assessment, medical history, allergy history and patient home medications list prior to surgery/procedure/anesthetic and documented any changes. Performed airway and anesthesia risk assessments. Anesthesia Type Anesthesia Type: MAC Anesthesia Focused Assessment* Temperature: 97.8 F Pulse Rate: 67 Blood Pressure: 122/76 Respiratory Rate: 16 Pulse Ox: 100 Airway Assessment Mouth opens: >3 cm Mallampati Score: II Focused Labs Anesthesia Preop lab: CBC WBC 6.2 K/mm3 (4.4-11.0) 08/07/23 08:18 RBC 4.80 M/mm3 (4.2-5.4) 08/07/23 08:18 Hgb 14.9 g/dL (12.0-15.0) 08/07/23 08:18 Hct 44.2 % (37-47) 08/07/23 08:18 Plt Count 233 K/mm3 (150-450) 08/07/23 08:18 CHEMISTRY Potassium 4.4 mmol/L (3.5-5.1) 08/07/23 08:18 Sodium 135 mmol/L (136-145) L 08/07/23 08:18 Magnesium 1.5 mg/dL (1.6-2.6) L 08/22/21 01:45 BUN 3 mg/dL (7-18) L 08/07/23 08:18 Creatinine 0.66 mg/dL (0.55-1.02) 08/07/23 08:18 Glucose 91 mg/dL (74-106) 08/07/23 08:18 TSH 1.13 uIU/mL (0.358-3.74) 06/27/23 09:30 COAG Pre-Assessment Diagnosis/Proposed Procedure Planned Operative Procedure(s): Colonoscopy,EGD Anesthesia History 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 When Was Last Pacemaker Check QUESTION #4 FULL TEXT: You/Your Family Experience fever (hyperthermia) with Anesthesia Last Oral Intake Last Oral intake: Last Oral Intake NPO since 22:30 09/23/23 07:27 Meds taken in AM with sips of No 09/23/23 07:27 water? 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 Female Yes 09/16/23 12:40 HX of Motion Sickness Yes 09/16/23 12:40 HX of N/V After Surgery No 09/16/23 12:40 Non-Smoker No 09/16/23 12:40 Duration of Surgery greater No 09/16/23 12:40 than 60 minutes Number of Risk Factors 2 09/16/23 12:40 PONV Score Moderate Risk 09/16/23 12:40 Height & Weight Height & Weight: Anesthesia: Height & Weight Height 5 ft 4 in 09/23/23 07:27 Weight: 65 kg 09/23/23 07:27 Body Mass Index (BMI) 24.5 09/23/23 07:27 Respiratory Assessment Respiratory Assessment - gas substation operator: Respiratory Tract Infection Hx - gas substation operator Hx Respiratory Tract Infection No 09/23/23 07:08 STOP Sleep Apnea STOP Sleep Apnea - gas substation operator: STOP Sleep Apnea - gas substation operator Hx Hypertension No 09/23/23 07:08 Hx Sleep Apnea No 09/23/23 07:08 CPAP BIPAP Do you snore loudly (louder No 09/23/23 07:08 than talking or can be heard Do you often feel tired/ No 09/23/23 07:08 fatigued/ sleepy during daytime? Has anyone observed you stop No 09/23/23 07:08 breathing during sleep? STOP Results Negative 09/23/23 07:22 QUESTION #5 FULL TEXT : Do you snore loudly (louder than talking or can be heard through closed doors)? 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 Specify any problems Hx of Preganancy in last 3 No 09/16/23 12:40 Months Nurse Filling Out Transfusion SFRANTZ 09/16/23 12:40 & Questions: Date: 09/16/23 09/16/23 12:40 Time: 12:43 09/16/23 12:40 Patient unable to answer at this time (ie. 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 operator: /Reproductive Hx- gas substation operator Hx Now No 09/23/23 07:08 Gestational Age (in weeks): EDC: Hx Hx Para Hx Section SAB No 09/16/23 12:40 Active Medications Active Medications: Current Medications Generic Name Dose Route Start Last Admin Trade Name Freq PRN Reason Stop Dose Admin Lactated Ringer's 1,000 mls @ 15 mls/hr 09/23/23 07:15 09/23/23 07:32 IV 15 mls/hr .Q48H ANGE Administration PFSH Medical History Anxiety Alcohol use History of renal disease Restless legs Migraine headache Asthma Leg cramps History of edema History of stress test Cardiology follow-up encounter History of irregular heartbeat Neck pain Trigeminal neuralgia Vision problems (06/08/22) Gastrointestinal complaints (03/10/13) Frequent headaches (03/10/03) Cataract (06/08/22) Syncope Trigger finger C. difficile colitis Infected dental caries Smoker Home Medications ?Medication ?Instructions ?Recorded ?Last Taken ?Type L.acid,bul,para,rham-B.anim,long 1 cap PO DAILY 06/26/23 Unknown History 10 billion cell-inulin 100 mg capsule (Probitoic Digestive Support (6 strain)) famotidine 40 mg tablet (Pepcid) 40 mg PO QHS 09/16/23 09/20/23 History Allergy/AdvReac Type Severity Reaction Status Date / Time codeine AdvReac Vomiting Verified 09/23/23 07:26 Family History Mother Age: 70 History of blood clotting disorder Hypertension Thyroid disorder AAA (abdominal aortic aneurysm) Bleeding ulcer Father Gout Social History adopted: No household members: significant other housing: house number of children: 0 current occupational status: employed 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[employer]) current occupational exposures/hazards: No pets and animals: No leisure activities: sports, games, fishing and reading history of recent travel: No sexually active: Yes Smoking Status: Current every day smoker tobacco type: cigarettes Tobacco: How many years used: 34 Electronic Cigarette Use: not used second hand exposure: Yes alcohol intake: current alcohol intake frequency: holidays/special occasions only Alcohol type: beer, wine and hard liquor substance use type: does not use caffeine: Yes what type of physical activity do you participate in: none, walking and other details: metal detector frequency: 1-2 times per week seatbelt use: always do you feel safe at home: Yes Review of Systems (Anesthesia) ROS Narrative System reviewed and no additional complaints, except as documented.
--- NOTE | 2023-09-23 08:15 | COLBX_PTH ---
PATIENT: SETH GOFF LOC: EN U#:[id number] AGE/SX: 48/F ROOM: RE09/23/[address]: Dr. Cassidy De Dios MD : 1975 BED: DIS: 09/23/2023 SPEC #: [id number] RECD: 09/23/23 10:48 STATUS: CANDELARIA NELSON #: [id number] AILIN: 09/23/23 08:[address]: Cassidy De Dios DEPT: SURGICAL PATHOLOGY RECD BY: Sakina Palmer ENTERED: 09/23/23 11:25 SP TYPE: COLON BX OTHR DR: Dr. Henny Rahman MD Tissues: Gastric mucous membrane Procedures: Surgery Specimen Level IV HEADER OPERATION: Colonoscopy, EGD with biopsy PRE-OP DIAGNOSIS: Change in bowel habits, epigastric pain TISSUE SUBMITTED: Antrum biopsy MICROSCOPIC DIAGNOSIS Antrum, biopsy: Mild gastritis. See microscopic description and comment. EDEN/ 09/24/2023 COMMENT The results of immunohistochemistry for Helicobacter pylori will be reported separately ([id number]). MICROSCOPIC DESCRIPTION Slides are reviewed. The specimen shows fragments of gastric mucosa with chronic inflammatory cell infiltrates in the lamina propria consisting of lymphocytes and plasma cells, consistent with mild chronic gastritis. GROSS DESCRIPTION Received in fixative is one container labeled with the patient's name and designated Antrum biopsy. The specimen consists of two irregular fragment of light cardozo soft tissue that measuring in aggregate 0.3 x 0.3 x 0.1 cm. The specimen is totally submitted in one cassette. / 09/23/2023 TC:3 CPT:37309
--- NOTE | 2023-09-23 08:15 | IMM_PTH ---
PATIENT: SETH GOFF LOC: EN U#:[id number] AGE/SX: 48/F ROOM: RE09/23/[address]: Dr. Cassidy De Dios MD : 1975 BED: DIS: 09/23/2023 SPEC #: [id number] RECD: 09/23/23 11:07 STATUS: CANDELARIA RERadha #: [id number] AILIN: 09/23/23 08:[address]: Cassidy De Dios DEPT: IMMUNOHISTOCHEMISTRY RECD BY: Adalid Bhatia ENTERED: 09/23/23 11:07 SP TYPE: IMMUNO OTHR DR: Dr. Henny Rahman MD Tissues: Gastric mucous membrane Procedures: H Pylori (initial) PHYSICIAN & INSTITUTION [place] [id number] SPECIMEN INFORMATION: Tissue Source: Antrum biopsy Clinical Info: Change in bowel habits, epigastric pain Specimen Number: [id number] CPT code: 52504 METHODOLOGY: Deparaffinized sections of prefer/formalin-fixed tissue or PAP/DQ stained slides are incubated with monoclonal/polyclonal antibodies/oligonucleotide probes. Localization is made via biotin free immunoperoxidase method. Appropriate controls are performed and reacted as expected. Results on target cell population are indicated in the following table: RESULTS: ANTIBODY / CLONE RESULT H Pylori (polyclonal) negative These tests were developed and their performance characteristics determined by [facility]. They may not have been cleared or approved by the U.S. Food and Drug Administration. The FDA has determined that such clearance or approval is not necessary. The above immunohistochemical/dualISH markers are ordered and reviewed by the Pathologist. INTERPRETATION: Antrum, biopsy: Negative for Helicobacter pylori organisms. EDEN/ 09/24/2023
--- NOTE | 2023-09-23 08:43 | OP.EGD_ITS ---
Patient Name: Rachelle Green Procedure Date: 09/23/2023 8:13 AM Date of : 1975 Age: 48 Procedure: Upper GI endoscopy Indications: Epigastric abdominal pain, Heartburn Providers: Cassidy De Dios MD Referring MD: Cassidy De Dios MD Medicines: Monitored Anesthesia Care Patient Profile: This is a 48 year old female. Complications: No immediate complications. Procedure: Pre-Anesthesia Assessment: - Prior to the procedure, a History and Physical was performed, and patient medications and allergies were reviewed. The patient's tolerance of previous anesthesia was also reviewed. The risks and benefits of the procedure and the sedation options and risks were discussed with the patient. All questions were answered, and informed consent was obtained. Prior Anticoagulants: The patient has taken no anticoagulant or antiplatelet agents. ASA Grade Assessment: Per anesthesia. After reviewing the risks and benefits, the patient was deemed in satisfactory condition to undergo the procedure. After obtaining informed consent, the endoscope was passed under direct vision. Throughout the procedure, the patient's blood pressure, pulse, and oxygen saturations were monitored continuously. The pediatric colonoscope was introduced through the mouth, and advanced to the second part of duodenum. The upper GI endoscopy was accomplished without difficulty. The patient tolerated the procedure well. Scope In: 8:20:04 AM Scope Out: 8:24:21 AM Total Procedure Duration Time 0 hours 4 minutes 17 seconds Findings: The Z-line was variable and was found 40 cm from the incisors. The examined duodenum was normal. Mildly erythematous mucosa without bleeding was found in the gastric antrum. Biopsies were taken with a cold forceps for histology. Biopsies were taken with a cold forceps for Helicobacter pylori cultures. The cardia and gastric fundus were normal on retroflexion. No gross lesions were noted in the entire esophagus. Impression: - Z-line variable, 40 cm from the incisors. - Normal examined duodenum. - Erythematous mucosa in the antrum. Biopsied. - No gross lesions in the entire esophagus. Recommendation: - Await pathology results. - Discharge patient to home. - Resume previous diet. - Continue present medications. - Await pathology results. Procedure Code(s): --- Professional --- 38984, PT, Esophagogastroduodenoscopy, flexible, transoral; with biopsy, single or multiple Diagnosis Code(s): --- Professional --- K22.89, Other specified disease of esophagus K31.89, Other diseases of stomach and duodenum R10.13, Epigastric pain R12, Heartburn CPT copyright 2021 [employer]. All rights reserved. The codes documented in this report are preliminary and upon wildlife refuge specialist review may be revised to meet current compliance requirements. MD Cassidy Carvalho MD 09/23/2023 8:42:37 AM This report has been signed electronically. Number of Addenda: 0 Note Initiated On: 09/23/2023 8:13 AM
--- NOTE | 2023-09-23 08:43 | OP.CCLET_ITS ---
09/23/2023 Henny Rahman Md Re : Upper GI endoscopy procedure for Rachelle Green Dear Josiah This procedure was performed on Saturday, September 23, 2023. My impressions and recommendations are as follows: Impressions : - Z-line variable, 40 cm from the incisors. - Normal examined duodenum. - Erythematous mucosa in the antrum. Biopsied. - No gross lesions in the entire esophagus. Recommendations : - Await pathology results. - Discharge patient to home. - Resume previous diet. - Continue present medications. - Await pathology results. My findings are described in the full procedure note, which is enclosed. If I can be of further assistance, please feel free to contact me at Doctor phone number(s): , Work: . Sincerely, MD Cassidy Carvalho MD 09/23/2023 8:42:37 AM This report has been signed electronically.
--- NOTE | 2023-09-23 08:44 | PCM.POST.ANE ---
Anesthesia: Postop Eval I Current Vital Signs Temperature: 97 F Pulse Rate: 75 Blood Pressure: 92/69 Respiratory Rate: 16 Pulse Ox: 97 Oxygen Delivery Method: Room Air Assessment Airway patent: Yes Spontaneous unlabored respirations: Yes Mental status: Asleep nausea: No Vomiting: No Anesthesia Complication: Yes Anesthesia Complication Comment:: profuse coughing, tx with fentanyl Fluid Hydration Crystalloid volume administer (ml): 700 Total IV fluid infused: 700 Progress Note Anesthesia document: Postop Eval 1 completed: Yes
--- NOTE | 2023-09-23 08:45 | OP.COLON_ITS ---
Patient Name: Rachelle Green Procedure Date: 09/23/2023 8:24 AM Date of : 1975 Age: 48 Procedure: Colonoscopy Indications: Change in bowel habits Providers: Cassidy De Dios MD Referring MD: Cassidy De Dios MD Medicines: Monitored Anesthesia Care Patient Profile: This is a 48 year old female. Last Colonoscopy: none. The patient's first colonoscopy is today. Complications: No immediate complications. Procedure: Pre-Anesthesia Assessment: - Prior to the procedure, a History and Physical was performed, and patient medications and allergies were reviewed. The patient's tolerance of previous anesthesia was also reviewed. The risks and benefits of the procedure and the sedation options and risks were discussed with the patient. All questions were answered, and informed consent was obtained. Prior Anticoagulants: The patient has taken no anticoagulant or antiplatelet agents. ASA Grade Assessment: Per anesthesia. After reviewing the risks and benefits, the patient was deemed in satisfactory condition to undergo the procedure. After I obtained informed consent, the scope was passed under direct vision. Throughout the procedure, the patient's blood pressure, pulse, and oxygen saturations were monitored continuously. The pediatric colonoscope was introduced through the anus and advanced to the cecum, identified by the appendiceal orifice, ileocecal valve and palpation. The colonoscopy was performed without difficulty. The patient tolerated the procedure well. The quality of the bowel preparation was good. Scope In: 8:25:51 AM Scope Out: 8:39:01 AM Total Procedure Duration Time 0 hours 13 minutes 10 seconds Findings: The perianal and digital rectal examinations were normal. The entire examined colon appeared normal on direct and retroflexion views. Impression: - The entire examined colon is normal on direct and retroflexion views. - No specimens collected. Recommendation: - Discharge patient to home. - Resume previous diet. - Continue present medications. - Repeat colonoscopy in 10 years for screening purposes. Procedure Code(s): --- Professional --- 76889, Colonoscopy, flexible; diagnostic, including collection of specimen(s) by brushing or washing, when performed (separate procedure) Diagnosis Code(s): --- Professional --- R19.4, Change in bowel habit CPT copyright 2021 [employer]. All rights reserved. The codes documented in this report are preliminary and upon salesperson surgical appliances review may be revised to meet current compliance requirements. MD Cassidy Carvalho MD 09/23/2023 8:45:11 AM This report has been signed electronically. Number of Addenda: 0 Note Initiated On: 09/23/2023 8:24 AM
--- NOTE | 2023-09-23 08:45 | OP.CCLET_ITS ---
09/23/2023 Henny Rahman Md Re : Colonoscopy procedure for Rachelle Green Dear Josiah This procedure was performed on Saturday, September 23, 2023. My impressions and recommendations are as follows: Impressions : - The entire examined colon is normal on direct and retroflexion views. - No specimens collected. Recommendations : - Discharge patient to home. - Resume previous diet. - Continue present medications. - Repeat colonoscopy in 10 years for screening purposes. My findings are described in the full procedure note, which is enclosed. If I can be of further assistance, please feel free to contact me at Doctor phone number(s): , Work: . Sincerely, MD Cassidy Carvalho MD 09/23/2023 8:45:11 AM This report has been signed electronically.
--- NOTE | 2023-09-23 13:26 | PCM.POSTANE2 ---
Anesthesia Postop Eval I Sum Postop Eval Completion status Anesthesia document: Postop Eval 1 completed: Yes Anesthesia Postop Eval I Summary Anesthesia Postop Eval I Summary: Anesthesia Postop Eval I: Assessment Summary Airway patent Yes 09/23/23 08:48 [email or web address] Spontaneous unlabored Yes 09/23/23 08:48 [email or web address] respirations Mental status Asleep 09/23/23 08:48 [email or web address] nausea No 09/23/23 08:48 [email or web address] Vomiting No 09/23/23 08:48 [email or web address] Anesthesia Postop Eval I: Fluid Summary Crystalloid volume administer 700 09/23/23 08:48 [email or web address] (ml) Colloids volume administered ( ml) Blood Product volume administered (ml) Total IV fluid infused 700 09/23/23 08:48 [email or web address] Anesthesia Postop Eval I: Summary Notes Anesthesia Complication Yes 09/23/23 08:48 [email or web address] Anesthesia Complication profuse coughing, 09/23/23 08:48 [email or web address] Comment: tx with fentanyl Post-operative progress note Anesthesia: Postop Eval II Evaluation Mental status: Awake Pain Level: 0 nausea: No Vomiting: No Complications Anesthesia Complication: No
== END 2023-09-23 09:40 | disposition home or self-care (01) ==
LOC: EN 06:57 → AC 06:58
PROVIDERS: PCP Internal Medicine; Referring Provider Surgery; Visit Provider Surgery
PROC: 0DJD8ZZ Inspection of Lower Intestinal Tract, Via Natural or Artificial Opening Endoscopic (ICD-10-PCS; CPT 45378; principal; 2023-09-23 08:10)
DX: R10.13 Epigastric pain (principal); K21.9 Gastro-esophageal reflux disease without esophagitis; F17.210 Nicotine dependence, cigarettes, uncomplicated; R19.4 Change in bowel habit; Z79.899 Other long term (current) drug therapy; K29.70 Gastritis, unspecified, without bleeding
CPT/HCPCS: 45378; 43239; 88305; 88342; J7120; J2405

== ENCOUNTER → 2024-04-23 | Outpatient (CLI) | payer OTHER, SELFPAY | END | disposition home or self-care (01) | LOC: LAB 07:55 | PROVIDERS: PCP Internal Medicine; Referring Provider Internal Medicine; Visit Provider Internal Medicine | DX: A04.72 Enterocolitis due to Clostridium difficile, not specified as recurrent (principal) | CPT/HCPCS: 87493 ==

== ENCOUNTER → 2024-07-09 | Outpatient (CLI) | payer OTHER, SELFPAY ==
--- NOTE | 2024-07-09 13:25 | MRI_ITS ---
PROCEDURE: BRAIN W/WO CONTRAST, 07/09/2024 REASON FOR EXAM: DAILY PERSISTENT HEADACHES COMPARISON: None TECHNIQUE: Multisequence multiplanar MRI brain was performed with and without intravenous contrast. IV contrast: 13 mL Clariscan. FINDINGS: Cerebrum: Unremarkable. Cerebellum: Mildly low-lying cerebellar tonsils, less than 5 mm, nonspecific and frequently incidental. Brainstem: Unremarkable. Ventricles/extra-axial spaces: Unremarkable. Major flow voids: Grossly unremarkable within limits of nondedicated technique. Paranasal sinuses: Unremarkable. Scalp/calvarium: Unremarkable. Orbits: Grossly unremarkable within limits of nondedicated technique. Other: No abnormal enhancement. MRI/Brain W/WO Contrast IMPRESSION: 1. No acute or suspicious findings. 2. Additional description as above. Reading Location: [id number]
== END | disposition home or self-care (01) ==
LOC: MRI 13:09
PROVIDERS: PCP Internal Medicine; Referring Provider Nurse Practitioner Family; Visit Provider Nurse Practitioner Family
DX: G44.52 New daily persistent headache (NDPH) (principal)
CPT/HCPCS: 70553; A9575

== ENCOUNTER → 2024-08-17 | Outpatient (CLI) | payer OTHER, SELFPAY ==
--- NOTE | 2024-08-17 09:58 | RAD_ITS ---
PROCEDURE: CERV SPINE 2 OR 3 VIEWS 08/17/2024 REASON FOR EXAM: HEADACHES TECHNIQUE: 3 views of the cervical spine. COMPARISON: None FINDINGS: There is loss of the lordosis. Vertebral body height and alignment are maintained. There is loss of disc height at C6-7. The facet articulations are aligned. Prevertebral soft tissues are within normal limits. The odontoid appears intact. Mineralization is normal. There is no visible atherosclerosis. RAD/Cerv Spine 2 or 3 Views IMPRESSION: There is loss of the lordosis. There is loss of disc height at C6-7. Reading Location: [facility]
--- NOTE | 2024-08-17 09:59 | RAD_ITS ---
PROCEDURE: LUMBAR SPINE 2 OR 3 VIEWS 08/17/2024 REASON FOR EXAM: CHRONIC BACK PAIN TECHNIQUE: 3 view(s) of the lumbar spine COMPARISON: None FINDINGS: Calcifications are noted in the right mid abdomen which may represent gallstones with the largest measuring 1.4 cm. There is grade 2 spondylolisthesis at L5-S1, 1.4 cm. 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 There is loss of disc height which is most severe from L4-S1. Vertebral body height is maintained. Mineralization is normal. Vascular calcifications are visible. RAD/Lumbar Spine 2 or 3 Views IMPRESSION: Calcifications are noted in the right mid abdomen which may represent gallstone s with the largest measuring 1.4 cm. There is grade 2 spondylolisthesis at L5-S1, 1.4 cm. 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 There is loss of disc height which is most severe from L4-S1. Reading Location: [facility]
== END | disposition home or self-care (01) ==
LOC: RAD 09:50
PROVIDERS: PCP Internal Medicine
DX: R51.9 Headache, unspecified (principal); M54.9 Dorsalgia, unspecified; G89.29 Other chronic pain
CPT/HCPCS: 72040; 72100

== ENCOUNTER → 2024-10-06 | Outpatient (CLI) | payer OTHER, SELFPAY ==
--- NOTE | 2024-10-06 09:36 | MRI_ITS ---
PROCEDURE: LOWER EXT/NO JT/W/O 10/06/2024 REASON FOR EXAM: 2ND METATARSAL TECHNIQUE: T1, T2, stir, MRI of the right forefoot multiplanar and multisequence images were obtained without IV contrast administration. COMPARISON: COMPARISON : None FINDINGS: Bone Marrow: There is no bony contusion or occult fracture. There is a severe hallux valgus deformity with osteoarthritis of the 1st metatarsophalangeal articulation. Effusion: There is no significant joint effusion. There is mild fluid distention of the 2nd and 3rd intermetatarsal bursa. Soft Tissues: There is no significant plantar muscular atrophy. There is no plantar plate injury. The sesamoid phalangeal articulation and ligaments are intact. Ligaments and Tendons: Flexor and extensor tendons appear intact. The Lisfranc articulation is aligned and intact. MRI/Lower Ext/No Jt/w/o IMPRESSION: There is a severe hallux valgus deformity with osteoarthritis of the 1st metata rsophalangeal articulation. There is mild fluid distention of the 2nd and 3rd intermetatarsal bursa. Reading Location: [facility]
--- OUTSIDE RECORDS SUMMARY | 2024-10-06 11:18 | XMS RPT_ITS | CCD ---
Author Organization [facility] Care Team Providers Care Business Continuity Analyst Name Role Phone Debra Betts MD Primary Care Provider Dr. Debra Betts Primary Care Provider Dr. Debra Betts Referring Provider [phone] PEG Lyons Attending Provider Dr. Henny Rahman Primary Care Provider Dr. Henny Rahman Attending Provider [phone] Dr. Henny Rahman Referring Provider Debra Betts MD Primary Care Provider SHANE FLORIAN. Primary Care Unavailable SYSTEM, PROVIDER NOT IN Referring Unavaila ble SYSTEM, PROVIDER NOT IN Attending Unavaila ble SHANE FLORIAN Primary Care Unavailable [place] TRUCK DRIVER'S OFFSIDER-Shane VERA Primary Care Provide r BRADEN SOLIMAN Attending Unavailable SHANE FLORIAN Primary Care Unavailable SHANE FLORIAN Consulting Unavailable GELA LEONARD DPSwati Attending Unavailable GELA LEONARD DPSwati Primary Care Unavailable GELA LEONARD DPSwati Admitting Unavailable PROVIDER, UNKNOWN Consulting Unavailable Dr. Henny Rahman MD Primary Care Provider [phone] Dr. Braden Soliman DO Attending Provider Dr. Braden Soliman DO Referring Provider Chiqui CHOKE SETTER-Shane Krause Attending Provider [phone] Shane Dominguez Referring Provider RAHUL FLORIAN Attending Provider [place], Henny Primary Care Unavailable Shane Florian NP Attending Unavailable Shane Florian NP Referring Unavailable [place], Henny Primary Care Unavailable Braden Soliman Attending Unavailable Braden Soliman [facility] Unavailable Gela Leonard Attending Unavailable Gela Leonard Referring Unavailable [facility] Attending Unavailable [place], Henny Primary Care Unavailable Allergies Allergy Classification Reported Allergen(s) Allergy Type Date of Onset Reaction(s) Facility (15 sources) Codeine; Translations: [CODEINE] Drug Allergy 9 Vomiting, Nausea/vomiting [facility] Work Phone: (1 source) ALLERGIES NOT ON FILE; Translations: [ALLERGIES NOT ON FILE] Propensity to adverse reactions (disorder) [facility] Repository (1 source) Codeine Drug Allergy [facility] Medications Current Medications Medication Drug Class(es) Dates Sig (Normalized) Sig (Original) famotidine 40 mg oral tablet (4 sources) Histamine-2 Receptor Antagonist Start: 08-18-2023 End: 09-16-2023 take 1 tablet by mouth at bedtime Famotidine (Pepcid) 40 mg tablet Active 40 mg PO AT BEDTIME September 16, 2023 12:00am Ibuprofen (4 sources) Nonsteroidal Anti-inflammatory Drug IBUPROFEN (MOTRIN ORAL) Take by mouth. 0 Active Comment on above: Take by mouth. ibuprofen (Motrin) 50 mg split tablet (1 source) take 2 tablets by mouth every six hours for pain ibuprofen (Motrin) 50 mg split tablet Take 2 tablets (400 mg) by mouth every 6 hours if needed for mild pain (1 - 3). Active L.Ac,Bul,Par,Rha-B .Ani,Melchor-Inu (Probiotic Digest Supp (6-Strn)) 10 billion cell -100 mg capsule (4 sources) Start: 06-26-2023 take 1 capsule by mouth once daily L.Ac,Bul,Par,Rha- B.Ani,Melchor-Inu (Probiotic Digest Supp (6-Strn)) 10 billion cell -100 mg capsule Active 1 NMA PO DAILY June 26, 2023 12:00am Start: 06-26-2023 L.Ac,Bul,Par,R phelps-B.Ani,Melchor-Inu (Probiotic Digest Supp (6- Strn)) 10 billion cell -100 mg capsule Active CAP PO June 26, 2023 12:00am Completed/Discontinued Medications Medication Drug Class(es) Dates Sig (Normalized) Sig (Original) amoxicillin 500 mg oral capsule (6 sources) Penicillin-class Antibacterial Start: 03-08-2022 End: 03-18-2022 take 1 capsule by mouth three times daily Amoxicillin 500 mg capsule Discontinued 500 mg PO THREE TIMES A DAY 06 01March 08, 2022 1:00am March 17, 2022 1:00am March 18, 2022 1:04am amoxicillin 875 mg / clavulanate 125 mg oral tablet (6 sources) Penicillin-class Antibacterial Start: 08-10-2022 End: 06-04-2023 Amoxicillin-Pot Clavulanate 875-125 mg tablet Discontinued 1 {tbl} PO Q12H August 10, 2022 12:00am June 04, 2023 1:36pm Start: 08-10-2022 End: 06-04-2023 take 1 tablet by mouth every twelve hours Amoxicillin-Pot Clavulanate Discontinued 1 TABLET PO Q12H August 10, 2022 12:00am June 04, 2023 1:36pm 12 hr carBAMazepine 300 mg extended release oral capsule (12 sources) Mood Stabilizer Start: 07-30-2021 End: 06-24-2023 take 1 capsule by mouth twice daily Carbamazepine 300 mg capsule, ER multiphase 12 hr Discontinued 300 mg PO TWICE A DAY August 22, 2021 12:00am June 24, 2023 10:32pm Start: 01-22-2021 take 1 capsule by mo ut twice daily carBAMazepine ER (CARBATROL) 300 mg 12 hr capsule Indications: Trigeminal neuralgia of right side of face Take 1 capsule by mouth twice daily. 60 capsule 5 01/22/2021 Active Comment on above: Take 1 capsule by mo uth twice daily. cefdinir 300 mg oral capsule (6 sources) Cephalosporin Antibacterial Start: End: take 1 capsule by mouth every twelve hours Cefdinir 300 mg capsule Discontinued 300 mg PO Q12H 27 12June 04, 2023 12:00am June 13, 2023 12:00am June 14, 2023 12:14am cholecalciferol 1.25 mg oral capsule (4 sources) Vitamin D Start: End: take 1 capsule by mouth every week Cholecalciferol (Vitamin D3) 1,250 mcg (50,000 unit) capsule Discontinued 1250 ug PO EVERY WEEK June 29, 2023 12:00am September 16, 2023 12:22pm pantoprazole 40 mg delayed release oral tablet (2 sources) Proton Pump Inhibitor Start: End: take 1 tablet by mouth once daily Pantoprazole 40 mg tablet,delayed release (DR/EC) Discontinued 40 mg PO DAILY August 07, 2023 12:00am August 18, 2023 4:04pm penicillin v potassium 250 mg oral tablet (7 sources) Start: End: Penicillin V Potassium 250 mg tablet Discontinued 500 mg PO 4 TIMES DAILY October 20, 2021 12:00am June 04, 2023 1:36pm Start: 10-20-2021 End: 06-04-2023 take 500 mg by mouth four times daily Penicillin V Potassium Discontinued 500 MG PO 4 TIMES DAILY October 20, 2021 12:00am June 04, 2023 1:36pm promethazine hydrochloride 25 mg oral tablet (7 sources) Phenothiazine Start: 10-20-2021 End: 06-04-2023 take 1 tablet by mouth every six hours as needed for nausea Promethazine 25 mg tablet Discontinued 25 mg PO EVERY 6 HOURS NEEDED as needed for Nausea October 20, 2021 12:00am June 04, 2023 1:36pm vancomycin 125 mg oral capsule (6 sources) Glycopeptide Antibacterial Start: 06-20-2023 End: 08-07-2023 take 1 capsule by mouth every six hours Vancomycin (Vancocin) 125 mg capsule Discontinued 125 mg PO EVERY 6 HOURS June 20, 2023 12:00am August 07, 2023 7:35am Problems Active Problems Problem Classification Problem Date Documented Da te Episodic/Chronic Abdominal pain (4 sources) Unspecified abdominal pain; Translations: [Epigastric pain] Onset: 01-23-2024 Episodic Administrative/social admission (2 sources) Persons encountering health services in other specified circumstances; Translations: [Other reasons for seeking consultation] 06-26-2023 Episodic Biliary tract disease (2 sources) Calculus of gallbladder without cholecystitis without obstruction; Translations: [Calculus of gallbladder without cholecystitis without obstruction] Onset: 02-09-2024 Episodic Conditions associated with dizziness or vertigo (7 sources) Dizziness; Translations: [Dizziness and giddiness] 08-30-2021 Episodic Disorders of teeth and jaw (19 sources) Dental abscess; Translations: [Periapical abscess without sinus] 03-08-2022 Episodic Fluid and electrolyte disorders (13 sources) Hyponatremia; Translations: [Hypo-osmolality and hyponatremia] Onset: 10-29-2017 10-29-2017 Episodic Fracture of lower limb (1 source) Stress fracture, unspecified foot, sequela; Translations: [Stress fracture, unspecified foot, sequela] Onset: 10-05-2024 Episodic Headache; including migraine (1 source) New daily persistent headache (NDPH); Translations: [New daily persistent headache (NDPH)] Onset: 07-14-2024 Chronic Headache; including migraine (1 source) Headache; including migraine; Translations: [Headache, unspecified] Onset: 08-20-2024 Malaise and fatigue (2 sources) Other fatigue; Translations: [Other malaise and fatigue] 06-26-2023 Episodic Menstrual disorders (4 sources) Dysmenorrhea; Translations: [Dysmenorrhea, unspecified] 11-08-2016 Chronic Nausea and vomiting (7 sources) Nausea; Translations: [Nausea] 10-28-2021 Episodic Nonspecific chest pain (9 sources) Chest pain; Translations: [Chest pain, unspecified] 10-28-2021 Episodic Other gastrointestinal disorders (6 sources) Diarrhea; Translations: [Diarrhea, unspecified] 06-20-2023 Episodic Other gastrointestinal disorders (2 sources) Diarrhea, unspecified; Translations: [Diarrhea, unspecified] Onset: 02-19-2024 Episodic Other gastrointestinal disorders (2 sources) Altered bowel function; Translations: [Change in bowel habit] 09-04-2023 Episodic Other screening for suspected conditions (not mental disorders or infectious disease) (13 sources) Patient encounter status; Translations: [Encounter for screening mammogram for malignant neoplasm of breast] Onset: 05-15-2018 05-15-2018 Episodic Other upper respiratory infections (11 sources) Viral upper respiratory tract infection; Translations: [Acute upper respiratory infection, unspecified] Episodic Residual codes; unclassified (2 sources) Unspecified symptoms and signs involving cognitive functions and awareness; Translations: [Other signs and symptoms involving cognition] 06-26-2023 Episodic Residual codes; unclassified (2 sources) Procedure and treatment not carried out because of patient's decision for unspecified reasons; Translations: [Surgical or other procedure not carried out because of patient's decision] 06-26-2023 Episodic Residual codes; unclassified (2 sources) Immunization not carried out because of patient refusal; Translations: [Vaccination not carried out because of patient refusal] 06-26-2023 Episodic Substance-related disorders (6 sources) Smoker; Translations: [Nicotine dependence, unspecified, uncomplicated] Onset: 11-08-2016 11-08-2016 Chronic Syncope (7 sources) Vasovagal syncope; Translations: [Syncope and collapse] 10-28-2021 Episodic Past or Other Problems Problem Classification Problem Date Documented Da te Episodic/Chronic Intestinal infection (11 sources) Clostridium difficile colitis; Translations: [Enterocolitis due to Clostridium difficile, not specified as recurrent] Onset: 04-22-2024 06-20-2023 Episodic Other nervous system disorders (4 sources) Right trigeminal neuralgia; Translations: [Trigeminal neuralgia] Onset: 05-28-2016 11-08-2016 Episodic Results Test Name Value Interpretation Reference Range Facility Cerv Spine 2 or 3 Viewson Cerv Spine 2 or 3 Views [facility] Imaging Services [address] [place] [address] [id number] Cerv Spine 2 or 3 Views MR#: [id number] Acct: [id number] Name: SETH GOFF Rep #: [id number] : 1975 F 49 From: Matheus King MD PCP: Dr. Henny Rhaman MD Status: REG CLI Study: Cerv Spine 2 or 3 Views Date of Exam: 08/17/24 Exam# [id number] Ordering Dr: RAHUL FLORIAN PROCEDURE: CERV SPINE 2 OR 3 VIEWS 08/17/2024 REASON FOR EXAM: HEADACHES TECHNIQUE: 3 views of the cervical spine. COMPARISON: None FINDINGS: There is loss of the lordosis. Vertebral body height and alignment are maintained. There is loss of disc height at C6-7. The facet articulations are aligned. Prevertebral soft tissues are within normal limits. The odontoid appears intact. Mineralization is normal. There is no visible atherosclerosis. RAD/Cerv Spine 2 or 3 Views IMPRESSION: There is loss of the lordosis. There is loss of disc height at C6-7. Reading Location: [facility] CC: RAHUL FLORIAN; Dr. Henny Rahman MD Manager Grant: Signed Normal [facility] Lumbar Spine 2 or 3 Viewson 08-17-2024 Lumbar Spine 2 or 3 Views [facility] Imaging Services [address] [place] [address] [id number] Lumbar Spine 2 or 3 Views MR#: [id number] Acct: [id number] Name: SETH GOFF Rep #: [id number] : 1975 F 49 From: Matheus King MD PCP: Dr. Henny Rahman MD Status: REG CLI Study: Lumbar Spine 2 or 3 Views Date of Exam: Exam# [id number] Ordering Dr: RAHUL FLORIAN PROCEDURE: LUMBAR SPINE 2 OR 3 VIEWS 08/17/2024 REASON FOR EXAM: CHRONIC BACK PAIN TECHNIQUE: 3 view(s) of the lumbar spine COMPARISON: None FINDINGS: Calcifications are noted in the right mid abdomen which may represent gallstones with the largest measuring 1.4 cm. There is grade 2 spondylolisthesis at L5-S1, 1.4 cm. 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 There is loss of disc height which is most severe from L4-S1. Vertebral body height is maintained. Mineralization is normal. Vascular calcifications are visible. RAD/Lumbar Spine 2 or 3 Views IMPRESSION: Calcifications are noted in the right mid abdomen which may represent gallstones with the largest measuring 1.4 cm. There is grade 2 spondylolisthesis at L5-S1, 1.4 cm. 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 There is loss of disc height which is most severe from L4-S1. [facility] CC: RAHUL FLORIAN; Dr. Henny Rahman MD Manager Grant: Signed [facility] Brain W/WO Contraston 2024 Brain W/WO Contrast [facility] Imaging Services [address] [place] [address] Brain W/WO Contrast MR#: [id number] Acct: [id number] Name: SETH GOFF Rep #: [id number] : 1975 F 49 From: Angel Panda MD PCP: Dr. Henny Rahman MD Status: REG CLI Study: Brain W/WO Contrast Date of Exam: 07/09/24 Exam# [id number] Ordering Dr: Shane Florian NP N P-C PROCEDURE: BRAIN W/WO CONTRAST, 07/09/2024 REASON FOR EXAM: DAILY PERSISTENT HEADACHES COMPARISON: None TECHNIQUE: Multisequence multiplanar MRI brain was performed with and without intravenous contrast. IV contrast: 13 mL Clariscan. FINDINGS: Cerebrum: Unremarkable. Cerebellum: Mildly low-lying cerebellar tonsils, less than 5 mm, nonspecific and frequently incidental. Brainstem: Unremarkable. Ventricles/extra-axial spaces: Unremarkable. Major flow voids: Grossly unremarkable within limits of nondedicated technique. Paranasal sinuses: Unremarkable. Scalp/calvarium: Unremarkable. Orbits: Grossly unremarkable within limits of nondedicated technique. Other: No abnormal enhancement. MRI/Brain W/WO Contrast IMPRESSION: 1. No acute or suspicious findings. 2. Additional description as above. Reading Location: [id number] CC: MEGHAN Florian; Dr. Henny Rahman MD Manager Grant: Signed [facility] FOOT COMPLETE RTon 5 FOOT COMPLETE RT [place] [address] Patient: SETH GOFF Phone#: : [phone] Age: 49 Gender: F Pt. Type: Out Account: [id number] Location: Ordering: GELA LEONARD Exam Date: 07/02/2024/15:26 Family Phys: SHANE FLORIAN Charge Code: 557367 Physician: [place] Order #: [id number] Dose#: PROCEDURE: X-RAY FOOT RT COMPLETE MIN 3 VIEWS COMPARISON: None. INDICATIONS: Pain at bottom of foot FINDINGS: BONES: Hallux valgus deformity is present. Degenerative changes are present at the 1st metatarsophalangeal joint. SOFT TISSUES: Negative. No visible soft tissue swelling. EFFUSION: None visible. OTHER: Negative. CONCLUSION: 1. Hallux valgus deformity is present. 2. There is no evidence of acute bone abnormality. Dictated by: Bing Cuevas MD on 07/02/2024 at 16:51 Approved by: Bing Cuevas MD on 07/02/2024 at 16:[address] [facility] CDIFF (PCR)on 04-23-2024 CDIFF A positive C. difficile molecular test does not differentiate between an active C. difficile infection and C. difficile colonization. Use clinical judgement and paired toxin/antigen testing to identify true infection and need for treatment. C diff DNA Spec Ql STARLA+probe Reference Range: Negative [employer] Gene[employer]pert: polymerase chain reaction (PCR) [phone] NAP1-B1 Presumptive Negative *for epidemiolologic???use C. Diff PCR Negative- No toxigenic C. Diff Detected [facility] Comment on above: Performed By: #### M [phone] #### [facility] [place], [address] Clostridium difficile detect ion by polymerase chain reactionOrdered By: Braden Soliman on 04-23-2024 C. difficile DNA STARLA+probe Ql (Unsp spec) [facility] Calprotectinon 02-19-2024 Calprotectin (Stl) [Mass/Mass] 25 ug/g Normal <=49 [facility] Comment on above: Result Comment: REFE RENCE INTERVAL: Calprotectin, Fecal by Immunoassay Less than 50 ug/g.........Normal 50-120 ug/g...............Borderline elevated, test should be re-evaluated in 4-6 weeks. 121 ug/g or greater.......Elevated Performed By: [employer] [address] [place] [address] Public Transit Trolley Driver: Shahzad Dukes MD, PhD CLIA Number: [id number] Performed By: #### 3 8445-3 #### [facility] ([facility]) ([id number]) [address] [place] [address] Clostridioides difficile tox in A+B tcdA+tcdB geneson 02-19-2024 C. difficile toxin A+B tcdA+tcdB genes STARLA+probe Ql (Stl) Clostridioides difficile toxin A+B tcdA+tcdB genes Detected Abnormal Not Detected [facility] Comment on above: Order Comment: This test is an FDA-cleared real-time PCR assay for detection of toxigenic C. difficile DNA from unprocessed liquid or unformed stool specimens that have not undergone nucleic acid extraction in symptomatic patients with potential C. difficile infection (CDI). A positive result may indicate colonization, and clinical assessment is required for the diagnosis of CDI. This test cannot be performed on formed stools or used as a test of cure, and should not be performed more than once per 7 days. Performed By: #### 8 0685-1 #### MEJÍA WESTLEY ([id number]) [facility] ([facility]) [address] [place] [address] Cryptosporidium sp Agon 02-07 Cryptosporidium sp Ag IA Ql (Stl) Negative Normal Negative [facility] Comment on above: Result Comment: Perf ormed By: [employer] [address] [place] [address] Public Transit Trolley Driver: Shahzad Dukes MD, PhD CLIA Number: [id number] Performed By: #### 6 371-9 #### [facility] ([facility]) ([id number]) [address] [place] [address] Elastase.pancreaticon 2023 Elastase.pancreatic (Stl) [Mass/Mass] >800 Normal >=100 [facility] Comment on above: Result Comment: REFE RENCE INTERVAL: Pancreatic Elastase Fecal by Immunoassay Less than 100 ug/g............Severe insufficiency 100 - 199 ug/g................Moderate insufficiency 200 ug/g or greater...........Normal INTERPRETIVE INFORMATION: Pancreatic Elastase Fecal by Immunoassay Reference intervals do not apply for infants less than one month old. Performed By: [employer] [address] [place] [address] Public Transit Trolley Driver: Shahzad Dukes MD, PhD CLIA Number: [id number] Performed By: #### 2 5907-7 #### [facility] ([facility]) ([id number]) [address] [place] [address] Gastrointestinal pathogens i dentifiedon 02-19-2024 Gastrointestinal pathogens identified STARLA+probe Nom (Stl) Campylobacter coli+jejuni+upsaliensi s DNA Not Detected Salmonella sp DNA Not Detected Shigella sp DNA Not Detected Vibrio cholerae DNA Not Detected Yersinia enterocolitica DNA Not Detected Escherichia coli Stx1 toxin stx1 gene Not Detected Escherichia coli Stx2 toxin stx2 gene Not Detected Norovirus genogroup I AND II RNA Not Detected Rotavirus RNA Not Detected Normal Not Detected [facility] Comment on above: Performed By: #### 7 9390-1 #### MODE Lynn ([id number]) [facility] ([facility]) [address] [place] [address] Giardia lamblia [facility] 024 G. lamblia Ag IA Ql (Stl) Negative Normal Negative [facility] Comment on above: Result Comment: Perf ormed By: [employer] [address] [place] [address] Public Transit Trolley Driver: Shahzad Dukes MD, PhD CLIA Number: [id number] Performed By: #### 6 412-1 #### [facility] [employer]) ([id number]) [address] [place] [address] NM HEPATOBILIARY W EJECTION FRACTION W NUTRITION SUPPLEMENTon 02-09-2024 NM HEPATOBILIARY W EJECTION FRACTION W NUTRITION SUPPLEMENT HIDA SCAN WITH GALLBLADDER EJECTION FRACTION HISTORY: Abdominal Pain. Gallstones. COMPARISON: None. METHOD: Following IV injection of 6.1 mCi of [id number] c, anterior imaging of the abdomen was acquired for 60 minutes. After the gallbladder was visualized the patient was given Boost and the gallbladder ejection fraction was calculated. FINDINGS: There is satisfactory uptake of radiopharmaceutical by the liver. The gallbladder, bile duct, and bowel are seen in the expected period of time and sequence. The gallbladder ejection fraction is normal at 44%. IMPRESSION: Normal hepatic biliary scintigraphy and gallbladder ejection fraction. Workstation ID: [id number] Dictated by: TRISTIN NEGRON on FriFeb 09, 2024 11:29:56 PM EST Transcribed by: TRISTIN NEGRON on FriFeb 09, 2024 11:29:56 PM EST Finalized by: TRISTIN NEGRON on FriFeb 09, 2024 11:29:56 PM EST Normal [facility] Comment on above: Order Comment: PT/FA X ORDERING PROVIDER: SHANE FLORIAN NP [address] [place] [address] PH: [phone] FAX: [phone] Injury/Trauma or Illness?:Illness/Other How long have you had these symptoms (acute/chronic)?:Unknown Reason for exam?:Calculus of gallbladder without cholecystitis without obstruction Type of Exam?:Unknown Additional signs and symptoms?:na Amylaseon 01-23-2024 Amylase [Catalytic activity/Vol] 46 U/L Normal 29-103 [facility] Comment on above: Performed By: #### 1 798-8 #### ALFONZO CHRISTY ([id number]) [facility] ([facility]) [address] [place] [address] Comprehensive metabolic 2000 panelon 01-23-2024 Albumin BCP dye [Mass/Vol] 4.2 g/dL Normal 3.4-5.0 [facility] Comment on above: Performed By: #### 2 4323-8 #### ALFONZO CHRISTY ([id number]) [facility] ([facility]) [address] [place] [address] ALP [Catalytic activity/Vol] 66 U/L Normal 33-110 [facility] Comment on above: Performed By: #### 2 4323-8 #### ALFONZO CHRISTY ([id number]) [facility] ([facility]) [address] [place] [address] ALT With P-5'-P [Catalytic activity/Vol] 15 U/L Normal 7-45 [facility] Comment on above: Result Comment: Chloé ents treated with Sulfasalazine may generate falsely decreased results for ALT. Performed By: #### 2 4323-8 #### ALFONZO CHRISTY ([id number]) [facility] ([facility]) [address] [place] [address] Anion gap [Moles/Vol] 8 mmol/L Low 10-20 [facility] Comment on above: Performed By: #### 2 4323-8 #### ALFONZO CHRISTY ([id number]) [facility] ([facility]) [address] [place] [address] AST With P-5'-P [Catalytic activity/Vol] 18 U/L Normal 9-39 [facility] Comment on above: Performed By: #### 2 4323-8 #### ALFONZO CHRISTY ([id number]) [facility] ([facility]) [address] [place] [address] Bilirubin [Mass/Vol] 0.5 mg/dL Normal 0.0-1.2 [facility] Comment on above: Performed By: #### 2 4323-8 #### ALFONZO CHRISTY ([id number]) [facility] ([facility]) [address] [place] [address] Calcium [Mass/Vol] 9.0 mg/dL Normal 8.6-10.[address] [facility] Comment on above: Performed By: #### 2 4323-8 #### ALFONZO CHRISTY ([id number]) [facility] ([facility]) [address] [place] [address] Chloride [Moles/Vol] 104 mmol/L Normal 98-107 [facility] Comment on above: Performed By: #### 2 4323-8 #### ALFONZO CHRISTY ([id number]) [facility] ([facility]) [address] [place] [address] CO2 [Moles/Vol] 28 mmol/L Normal 21-32 [facility] Comment on above: Performed By: #### 2 4323-8 #### ALFONZO CHRISTY ([id number]) [facility] ([facility]) [address] [place] [address] Creatinine [Mass/Vol] 0.61 mg/dL Normal 0.50-1.05 [facility] Comment on above: Performed By: #### 2 4323-8 #### ALFONZO CHRISTY ([id number]) [facility] ([facility]) [address] [place] [id number] GFR/1.73 sq M.predicted MDRD (S/P/Bld) [Vol rate/Area] mL/min/{1.73_m2} Normal >60 [facility] Comment on above: Result Comment: Calc ulations of estimated GFR are performed using the 2020 CKD-EPI Study Refit equation without the race variable for the IDMS-Traceable creatinine methods. https://jasn.asnjournals.org/content/early//ASN.480 6718752 Performed By: #### 2 4323-8 #### ALFONZO CHRISTY ([id number]) [facility] ([facility]) [address] [place] [address] Glucose [Mass/Vol] 89 mg/dL Normal 74-[address] [facility] Comment on above: Performed By: #### 2 4323-8 #### ALFONZO CHRISTY ([id number]) [facility] ([facility]) [address] [place] [address] 95452 Potassium [Moles/Vol] 5.1 mmol/L Normal 3.5-5.3 [facility] Comment on above: Performed By: #### 2 4323-8 #### ALFONZO CHRISTY ([id number]) [facility] ([facility]) [address] [place] [address]74 Protein [Mass/Vol] 6.3 g/dL Low 6.4-8.[address] [facility] Comment on above: Performed By: #### 2 4323-8 #### ALFONZO CHRISTY ([id number]) [facility] ([facility]) [address] [place] [address] Sodium [Moles/Vol] 135 mmol/L Low 136-[address] [facility] Comment on above: Performed By: #### 2 4323-8 #### ALFONZO CHRISTY ([id number]) [facility] ([facility]) [address] [place] [address] Urea nitrogen [Mass/Vol] 9 mg/dL Normal 6-23 [facility] Comment on above: Performed By: #### 2 4323-8 #### ALFONZO CHRISTY ([id number]) [facility] ([facility]) [address] [place] [address]167 Triacylglycerol lipaseon Lipase [Catalytic activity/Vol] 32 U/L Normal 9-82 [facility] Comment on above: Order Comment: Venip uncture immediately after or during the administration of Metamizole may lead to falsely low results. Testing should be performed immediately prior to Metamizole dosing. Performed By: #### 3 040-3 #### ALFONZO CHRISTY ([id number]) [facility] ([facility]) [address] [place] [address]91 Laboratory - Chemistry and C hemistry - challengeOrdered By: Henny Rahman on 07-11-2023 Cobalamin (Vitamin B12) [Mass/Vol] 910 pg/mL 211-911 [facility] Basophil percentageOrdered B y: Henny Rahman on 06-27-2023 Bilirubin [Mass/Vol] 0.60 mg/dL 0.20-1.00 [facility] Comment on above: For patients on eltr ombopag therapy, use of Dimension [place] TBIL is not recommended. Chloride [Moles/Vol] 107 mmol/L 98-107 [facility] Cholesterol [Mass/Vol] 158 mg/dL <200 [facility] Comment on above: <200 mg/dL Desirable 200-240 mg/dL Borderline >240 mg/dL High Risk Glucose [Mass/Vol] 101 mg/dL 74-106 [facility] Comment on above: Fasting Glucose resu lt from 100 to 125 mg/dL suggests IMPAIRED HOMEOSTASIS per A.D.A. criteria. Potassium [Moles/Vol] 4.1 mmol/L 3.5-5.1 [facility] Protein [Mass/Vol] 6.6 g/dL 6.4-8.2 [facility] Sodium [Moles/Vol] 137 mmol/L 136-145 [facility] Triglyceride [Mass/Vol] 94 mg/dL <199 [facility] Comment on above: The drugs N-Acetylcy steine and Metamizole may falsely depress this assay.Serum Triglycerides Reference Interval Normal <150 mg/dL Borderline high 150 - 199 mg/dL High 200 - 499 mg/dL Very High > or = 500 mg/dL Laboratory - Chemistry and C hemistry - challengeOrdered By: Henny Rahman on 06-27-2023 Albumin/Globulin [Mass ratio] 1.2 {ratio} 0.9-2.4 [facility] ALP [Catalytic activity/Vol] 55 U/L 45-117 [facility] ALT [Catalytic activity/Vol] 23 U/L 13-56 [facility] Cholesterol in HDL [Mass/Vol] 39 mg/dL >40 [facility] Comment on above: The drugs N-Acetylcy steine and Metamizole may falsely depress this assay. Reference Range HDL <40 mg/dL Low HDL Cholesterol HDL >or= 60 mg/dL High HDL Cholesterol Cholesterol in LDL [Mass/Vol] 100 mg/dL 0-130 [facility] CO2 [Moles/Vol] 25.0 mmol/L 21.0-32.0 [facility] Cobalamin (Vitamin B12) [Mass/Vol] 1782 pg/mL 211-911 [facility] Globulin (S) [Mass/Vol] 3.0 g/dL 2.2-4.2 [facility] Urea nitrogen/Creatinine [Mass ratio] 3.2 mg/mg 10-20 [facility] No Panel InformationOrdered By: Henny Rahman on 06-27-2023 Anti-Nuclear Antibody Screen Negative . [facility] Comment on above: Negative <1:80 Borde rline 1:80 Positive >1:80ICAP nomenclature: AC-0For more information about Hep-2 cell patterns useANApatterns.org, the official website for theInternational Consensus on Antinuclear Antibody (NAYELI)Patterns (ICAP).Performed at: [facility] [id number] Director: Rancho Washington PhD, Phone: [phone] Centromere B Antibody <0.2 AI 0.0-0.9 [facility] Estimated GFR (MDRD) Amer 128 mL/min >60 [facility] Comment on above: GFR Calc Estimated GFR (MDRD) Non-Af Amer 105 mL/min >60 [facility] Comment on above: Non- GFR Calc MICHAEL-1 Antibody <0.2 AI 0.0-0.9 [facility] SYSTEM AUDITOR Antibody <0.2 AI 0.0-0.9 [facility] SM Antibody <0.2 AI 0.0-0.9 [facility] SS-A/Ro IgG Antibody < 0.2 AI 0.0-0.9 [facility] SS-B/La IgG Antibody < 0.2 AI 0.0-0.9 [facility] Vitamin D 25-Hydroxy 14.4 ng/mL [facility] Comment on above: Vitamin D 25(OH) Sta tus Range Deficiency <20 ng/mL (50nmol/L) Insufficiency 20 - 30 ng/mL (50 - 75 nmol/L) Sufficiency 30 - 100 ng/mL (75 - 250 nmol/L) Toxicity >100 ng/mL (>250 nmol/L) VLDL Cholesterol 19 mg/dL 5-40 [facility] Serum DNA double strand anti body assay (units/volume)Ordered By: Henny Rahman on 06-27-2023 DNA double strand Ab Qn (S) 2 [IU]/mL 0-9 [facility] Comment on above: Negative <5 Equivoca l 5 - 9 Positive >9 Serum Scl-70 antibody assay (units/volume)Ordered By: Henny Rahman on 06-27-2023 SCL-70 extractable nuclear Ab Qn (S) <0.2 AI 0.0-0.9 [facility] Serum or plasma calcium lea urement (mass/volume)Ordered By: Henny Rahman on 06-27-2023 Calcium [Mass/Vol] 9.1 mg/dL 8.5-10.1 [facility] Serum or plasma creatinine m easurement (mass/volume)Ordered By: Henny Rahman on 06-27-2023 Creatinine [Mass/Vol] 0.63 mg/dL 0.55-1.02 [facility] Comment on above: The validity of the calculated GFR & GFRAA in patients over 70 years has not been determined. Clinical correlation is essential. Serum or plasma thyroid stim ulating hormone (TSH) measurement (units/volume)Ordered By: Henny Rahman on 06-27-2023 TSH Qn 1.13 uIU/mL 0.358-3.74 [facility] Serum or plasma urea nitroge n measurement (mass/volume)Ordered By: Hennyrafael Rahman on 06-27-2023 Urea nitrogen [Mass/Vol] 2 mg/dL 7-18 [facility] Thin prep Papanicolaou smear with manual screeningOrdered By: Henny Rahman on 06-27-2023 Thin prep Papanicolaou smear with manual screening 3.6 g/dL 3.2-5.0 [facility] Thin prep Papanicolaou smear with manual screening 22 U/L 15-37 [facility] Thin prep Papanicolaou smear with manual screening 5 5-15 [facility] Absolute lymphocyte countOrd ered By: Tyler Aguilera on 06-24-2023 Lymphocytes Auto (Unsp spec) [#/Vol] 1.60 10*3/uL 0.83-4.51 [facility] Automated lymphocyte count a s percentage of total leukocytesOrdered By: Tyler Aguilera on 06-24-2023 Lymphocytes/100 WBC Auto (Unsp spec) 26.1 % 19-41 [facility] Basophil percentageOrdered B y: Tyler Aguilera on 06-24-2023 Basophils/100 WBC (Bld) 0.5 % 0-1 [facility] Chloride [Moles/Vol] 101 mmol/L 98-107 [facility] Eosinophils/100 WBC (Bld) 1.3 % 0-5 [facility] Glucose [Mass/Vol] 112 mg/dL 74-106 [facility] Comment on above: Fasting Glucose resu lt from 100 to 125 mg/dL suggests IMPAIRED HOMEOSTASIS per A.D.A. criteria. Hemoglobin (Bld) [Mass/Vol] 12.9 g/dL 12.0-15.0 [facility] Monocytes/100 WBC (Bld) 7.3 % 0-10 [facility] Neutrophils (Bld) [#/Vol] 4.0 10*3/uL 2.0-7.7 [facility] Neutrophils/100 WBC (Bld) 64.5 % 47-70 [facility] Potassium [Moles/Vol] 3.6 mmol/L 3.5-5.1 [facility] Sodium [Moles/Vol] 133 mmol/L 136-145 [facility] WBC (Bld) [#/Vol] 6.1 10*3/uL 4.4-11.0 [facility] Determination of erythrocyte mean corpuscular volume (MCV)Ordered By: Tyler Aguilera on 06-24-2023 MCV (RBC) [Entitic vol] 86.2 fL 81-99 [facility] Erythrocyte distribution wid th ratioOrdered By: Tyler Aguilera on 06-24-2023 Erythrocyte distribution width (RBC) [Ratio] 12.2 % 11.6-14.6 [facility] Erythrocyte distribution wid th standard deviationOrdered By: Tyler Aguilera on 06-24-2023 Erythrocyte distribution width (RBC) [Entitic vol] 38.6 fL 35.1-43.9 [facility] Hematocrit Auto (Bld) [Volum e fraction]Ordered By: Tyler Aguilera on 06-24-2023 Hematocrit (Bld) [Volume fraction] 36.7 % 37-47 [facility] Immature granulocytes/100 WB C Auto (Bld)Ordered By: Tyler Aguilera on 06-24-2023 Immature granulocytes/100 WBC (Bld) 0.300 % 0.0-0.9 [facility] Comment on above: IG% - Immature Granu locytes (promyelocytes, myelocytes and metamyelocytes) > 1% indicates that a LEFT SHIFT is Present. Laboratory - Chemistry and C hemistry - challengeOrdered By: Tyler Aguilera on 06-24-2023 CO2 [Moles/Vol] 25.0 mmol/L 21.0-32.0 [facility] Urea nitrogen/Creatinine [Mass ratio] 4.9 mg/mg 10-20 [facility] Laboratory - Hematology and Cell countsOrdered By: Tyler Aguilera on 06-24-2023 MCH (RBC) [Entitic mass] 30.3 pg 27.0-32.0 [facility] MCHC (RBC) [Mass/Vol] 35.1 g/dL 32-36 [facility] Nucleated RBC/100 WBC (Bld) [Ratio] 0 % 0-5 [facility] Platelet mean volume (Bld) [Entitic vol] 9.3 fL 6.2-12.0 [facility] Platelets (Bld) [#/Vol] 252 10*3/uL 150-450 [facility] No Panel InformationOrdered By: Tyler Aguilera on 06-24-2023 Estimated Creatinine Clearance Calc 111.09 ml/min [facility] Estimated GFR (MDRD) Amer 133 mL/min >60 [facility] Comment on above: GFR Calc Estimated GFR (MDRD) Non-Af Amer 110 mL/min >60 [facility] Comment on above: Non- GFR Calc Troponin I High Sensitivity 4 pg/mL 3.0-54.0 [facility] Comment on above: Please Note: New Richa t Units and Gender Specific Reference Ranges. For more information see Policy Stat Procedure [place] High Sensitivity Troponin (TNIH) and attachments. RBC Auto (Bld) [#/Vol]Ordere d By: Tyler Aguilera on 06-24-2023 RBC (Bld) [#/Vol] 4.26 10*6/uL 4.2-5.4 [facility] Serum or plasma calcium lea urement (mass/volume)Ordered By: Tyler Aguilera on 06-24-2023 Calcium [Mass/Vol] 8.7 mg/dL 8.5-10.1 [facility] Serum or plasma creatinine m easurement (mass/volume)Ordered By: Tyler Aguilera on 06-24-2023 Creatinine [Mass/Vol] 0.61 mg/dL 0.55-1.02 [facility] Comment on above: The validity of the calculated GFR & GFRAA in patients over 70 years has not been determined. Clinical correlation is essential. Serum or plasma urea nitroge n measurement (mass/volume)Ordered By: Tyler Aguilera on 06-24-2023 Urea nitrogen [Mass/Vol] 3 mg/dL 7-18 [facility] Thin prep Papanicolaou smear with manual screeningOrdered By: Tyler Aguilera on 06-24-2023 Thin prep Papanicolaou smear with manual screening 7 5-15 [facility] Absolute lymphocyte countOrd ered By: Adria Sinclairojel on 06-20-2023 Lymphocytes Auto (Unsp spec) [#/Vol] 0.90 10*3/uL 0.83-4.51 [facility] Automated lymphocyte count a s percentage of total leukocytesOrdered By: Adria Yin on 06-20-2023 Lymphocytes/100 WBC Auto (Unsp spec) 4.3 % 19-41 [facility] Basophil percentageOrdered B y: Adria Sinclairjoel on 06-20-2023 Basophils/100 WBC (Bld) 0.2 % 0-1 [facility] Bilirubin [Mass/Vol] 0.90 mg/dL 0.20-1.00 [facility] Comment on above: For patients on eltr ombopag therapy, use of Dimension [place] TBIL is not recommended. Chloride [Moles/Vol] 99 mmol/L 98-107 [facility] Eosinophils/100 WBC (Bld) 0.0 % 0-5 [facility] Glucose [Mass/Vol] 103 mg/dL 74-106 [facility] Comment on above: Fasting Glucose resu lt from 100 to 125 mg/dL suggests IMPAIRED HOMEOSTASIS per A.D.A. criteria. Hemoglobin (Bld) [Mass/Vol] 14.4 g/dL 12.0-15.0 [facility] Lactate [Moles/Vol] 1.6 mmol/L 0.4-2.0 [facility] Monocytes/100 WBC (Bld) 4.2 % 0-10 [facility] Neutrophils (Bld) [#/Vol] 19.2 10*3/uL 2.0-7.7 [facility] Neutrophils/100 WBC (Bld) 90.7 % 47-70 [facility] Potassium [Moles/Vol] 3.5 mmol/L 3.5-5.1 [facility] Protein [Mass/Vol] 7.4 g/dL 6.4-8.2 [facility] Sodium [Moles/Vol] 129 mmol/L 136-145 [facility] WBC (Bld) [#/Vol] 21.2 10*3/uL 4.4-11.0 [facility] Basophil percentage 0 SEEN /hpf 0-5 [facility] Bilirubin Test strip Ql (U)O rdered By: Adria Yin on 06-20-2023 Bilirubin Ql (U) Negative Negative [facility] C. difficile Ql (Stl)Ordered By: Adria Yin on 06-20-2023 C. difficile [facility] Antigen & Toxins Toxigenic C. difficile [facility] Clostridioides difficile nuc leic acid assay by PCROrdered By: Adria Yin on 06-20-2023 C. difficile DNA STARLA+probe Ql (Unsp spec) [facility] Determination of erythrocyte mean corpuscular volume (MCV)Ordered By: Adria Yin on 06-20-2023 MCV (RBC) [Entitic vol] 88.4 fL 81-99 [facility] Direct bilirubinOrdered By: Adria Yin on 06-20-2023 Bilirubin.direct [Mass/Vol] 0.24 mg/dL 0.00-0.30 [facility] Erythrocyte distribution wid th ratioOrdered By: Adria Yin on 06-20-2023 Erythrocyte distribution width (RBC) [Ratio] 12.1 % 11.6-14.6 [facility] Erythrocyte distribution wid th standard deviationOrdered By: Adria Yin on 06-20-2023 Erythrocyte distribution width (RBC) [Entitic vol] 39.3 fL 35.1-43.9 [facility] Hematocrit Auto (Bld) [Volum e fraction]Ordered By: Adria Yin on 06-20-2023 Hematocrit (Bld) [Volume fraction] 41.9 % 37-47 [facility] Immature granulocytes/100 WB C Auto (Bld)Ordered By: Adria Yin on 06-20-2023 Immature granulocytes/100 WBC (Bld) 0.600 % 0.0-0.9 [facility] Comment on above: IG% - Immature Granu locytes (promyelocytes, myelocytes and metamyelocytes) > 1% indicates that a LEFT SHIFT is Present. Ketones Test strip Ql (U)Ord ered By: Adria Yin on 06-20-2023 Ketones Ql (U) 5 mg/dl Negative [facility] Laboratory - Chemistry and C hemistry - challengeOrdered By: Adria Yin on 06-20-2023 ALP [Catalytic activity/Vol] 75 U/L 45-117 [facility] ALT [Catalytic activity/Vol] 19 U/L 13-56 [facility] CO2 [Moles/Vol] 23.0 mmol/L 21.0-32.0 [facility] Globulin (S) [Mass/Vol] 3.3 g/dL 2.2-4.2 [facility] Urea nitrogen/Creatinine [Mass ratio] 8.9 mg/mg 10-20 [facility] Laboratory - Hematology and Cell countsOrdered By: Adria Yin on 06-20-2023 MCH (RBC) [Entitic mass] 30.4 pg 27.0-32.0 [facility] MCHC (RBC) [Mass/Vol] 34.4 g/dL 32-36 [facility] Nucleated RBC/100 WBC (Bld) [Ratio] 0 % 0-5 [facility] Platelet mean volume (Bld) [Entitic vol] 9.2 fL 6.2-12.0 [facility] Platelets (Bld) [#/Vol] 245 10*3/uL 150-450 [facility] Laboratory - Microbiology an d Antimicrobial susceptibilityOrdered By: Adria Yin on 06-20-2023 SARS-CoV-2 (COVID-19) RNA STARLA+probe Ql (Unsp spec) [facility] Mucus LM Ql (Urine sed)Order ed By: Adria Yin on 06-20-2023 Mucus Ql (Urine sed) 0 SEEN /hpf [facility] Nitrite Test strip Ql (U)Ord ered By: Adria Yin on 06-20-2023 Nitrite Ql (U) Negative Negative [facility] No Panel InformationOrdered By: Adria Yin on 06-20-2023 Estimated Creatinine Clearance Calc 88.02 ml/min [facility] Estimated GFR (MDRD) Amer 100 mL/min >60 [facility] Comment on above: GFR Calc Estimated GFR (MDRD) Non-Af Amer 83 mL/min >60 [facility] Comment on above: Non- GFR Calc Urine RBC 0 SEEN /hpf 0-5 [facility] Protein Test strip Ql (U)Ord ered By: Adria Yin on 06-20-2023 Protein Ql (U) Negative Negative [facility] RBC Auto (Bld) [#/Vol]Ordere d By: Adria Yin on 06-20-2023 RBC (Bld) [#/Vol] 4.74 10*6/uL 4.2-5.4 [facility] Serum or plasma calcium lea urement (mass/volume)Ordered By: Remus Yin on 06-20-2023 Calcium [Mass/Vol] 8.8 mg/dL 8.5-10.1 [facility] Serum or plasma creatinine m easurement (mass/volume)Ordered By: Remus Yin on 06-20-2023 Creatinine [Mass/Vol] 0.78 mg/dL 0.55-1.02 [facility] Comment on above: The validity of the calculated GFR & GFRAA in patients over 70 years has not been determined. Clinical correlation is essential. Serum or plasma urea nitroge n measurement (mass/volume)Ordered By: Adria Yin on 06-20-2023 Urea nitrogen [Mass/Vol] 7 mg/dL 7-18 [facility] Squamous epithelial cells de tection in urine sediment by light microscopyOrdered By: Adria Yin on 06-20-2023 Epithelial cells.squamous LM Ql (Urine sed) 0-5 SEEN /hpf 5-10 [facility] Stool Clostridium difficile detectionOrdered By: Adria Yin on 06-20-2023 C. difficile Ql (Stl) [facility] Thin prep Papanicolaou smear with manual screeningOrdered By: Remus Yin on 06-20-2023 Thin prep Papanicolaou smear with manual screening 7 5-15 [facility] Thin prep Papanicolaou smear with manual screening 4.1 g/dL 3.2-5.0 [facility] Thin prep Papanicolaou smear with manual screening 19 U/L 15-37 [facility] Urine blood detectionOrdered By: Rem Ungjoel on 06-20-2023 RBC Ql (U) 25 /ul Negative [facility] Urine clarityOrdered By: Rem us Annamaria on 06-20-2023 Clarity (U) Clear Clear [facility] Urine color determinationOrd ered By: Adria Yin on 06-20-2023 Color (U) Straw Yellow [facility] Urine glucose detectionOrder ed By: Adria Yin on 06-20-2023 Glucose Ql (U) Normal mg/dl Normal [facility] Urine leukocyte esterase det ection by dipstickOrdered By: Adria Yin on 06-20-2023 Leukocyte esterase Test strip Ql (U) Negative Negative [facility] Urine pHOrdered By: Adria Un gur on 06-20-2023 pH (U) 6.5 [pH] 5.0 - 8.0 [facility] Urine sediment bacteria coun t by microscopy (number/high power field)Ordered By: Adria Yin on 06-20-2023 Bacteria LM.HPF (Urine sed) [#/Area] 0 /[HPF] None Seen [facility] Urine specific gravity measu rementOrdered By: Adria Yin on 06-20-2023 Specific gravity (U) [Rel density] 1.010 1.002-1.030 [facility] Urine urobilinogen measureme ntOrdered By: Adria Yin on 06-20-2023 Urobilinogen Ql (U) Normal mg/dl Normal [facility] Laboratory - Microbiology an d Antimicrobial susceptibilityon 06-04-2023 SARS-CoV-2 (COVID-19) RNA STARLA+probe Ql (Unsp spec) Not detected [facility] No Panel Informationon 06-03 Influenza Types A,B Rapid (Clinic) Not detected [facility] Absolute lymphocyte counton 10-20-2021 Lymphocytes Auto (Unsp spec) [#/Vol] 2.27 10*3/uL 0.83-4.51 [facility] Work Phone: Basophil percentageon 2021 Basophils/100 WBC (Bld) 0.3 % 0-1 [facility] Work Phone: Bilirubin [Mass/Vol] 0.50 mg/dL 0.20-1.00 [facility] Work Phone: Comment on above: For patients on eltr ombopag therapy, use of Dimension [place] TBIL is not recommended. Chloride [Moles/Vol] 92 mmol/L 98-107 [facility] Work Phone: Eosinophils/100 WBC (Bld) 1.2 % 0-5 [facility] Work Phone: Glucose [Mass/Vol] 125 mg/dL 74-106 [facility] Work Phone: Comment on above: Fasting Glucose resu lt from 100 to 125 mg/dL suggests IMPAIRED HOMEOSTASIS per A.D.A. criteria. Neutrophils (Bld) [#/Vol] 4.1 10*3/uL 2.0-7.7 [facility] Work Phone: Neutrophils/100 WBC (Bld) 59.0 % 47-70 [facility] Work Phone: Potassium [Moles/Vol] 3.2 mmol/L 3.5-5.1 [facility] Work Phone: Protein [Mass/Vol] 6.1 g/dL 6.4-8.2 [facility] Work Phone: Sodium [Moles/Vol] 124 mmol/L 136-145 [facility] Work Phone: WBC (Bld) [#/Vol] 6.9 10*3/uL 4.4-11.0 [facility] Work Phone: Blood erythrocytes count (nu mber/volume)on 10-20-2021 RBC (Bld) [#/Vol] 3.92 10*6/uL 4.2-5.4 [facility] Work Phone: Blood hemoglobin measurement (mass/volume)on 10-20-2021 Hemoglobin (Bld) [Mass/Vol] 12.3 g/dL 12.0-15.0 [facility] Work Phone: Blood lymphocytes/100 leukoc yteson 10-20-2021 Lymphocytes/100 WBC (Bld) 32.9 % 19-41 [facility] Work Phone: Blood monocytes/100 leukocyt eson 10-20-2021 Monocytes/100 WBC (Bld) 6.2 % 0-10 [facility] Work Phone: [phone] Blood platelet mean volumeon 10-20-2021 Platelet mean volume (Bld) [Entitic vol] 9.0 fL 6.2-12.0 [facility] Work Phone: [phone] Determination of erythrocyte mean corpuscular volume (MCV)on 10-20-2021 MCV (RBC) [Entitic vol] 88.8 fL 81-99 [facility] Work Phone: [phone] Hematocrit Auto (Bld) [Volum e fraction]on 10-20-2021 Hematocrit (Bld) [Volume fraction] 34.8 % 37-47 [facility] Work Phone: [phone] Laboratory - Chemistry and C hemistry - challengeon 10-20-2021 ALP [Catalytic activity/Vol] 58 U/L 45-117 [facility] Work Phone: [phone] ALT [Catalytic activity/Vol] 20 U/L 13-56 [facility] Work Phone: [phone] CO2 [Moles/Vol] 23.0 mmol/L 21.0-32.0 [facility] Work Phone: [phone] Globulin (S) [Mass/Vol] 2.6 g/dL 2.2-4.2 [facility] Work Phone: [phone] Urea nitrogen/Creatinine [Mass ratio] 11.1 mg/mg 10-20 [facility] Work Phone: [phone] Laboratory - Hematology and Cell countson 10-20-2021 Erythrocyte distribution width (RBC) [Entitic vol] 38.8 fL 35.1-43.9 [facility] Work Phone: [phone] Erythrocyte distribution width (RBC) [Ratio] 12.0 % 11.6-14.6 [facility] Work Phone: [phone] Immature granulocytes/100 WBC (Bld) 0.400 % 0.0-0.9 [facility] Work Phone: [phone] Comment on above: IG% - Immature Granu locytes (promyelocytes, myelocytes and metamyelocytes) > 1% indicates that a LEFT SHIFT is Present. MCH (RBC) [Entitic mass] 31.4 pg 27.0-32.0 [facility] Work Phone: [phone] Nucleated RBC/100 WBC (Bld) [Ratio] 0 % 0-5 [facility] Work Phone: [phone] MCHC Auto (RBC) [Mass/Vol]on 10-20-2021 MCHC (RBC) [Mass/Vol] 35.3 g/dL 32-36 [facility] Work Phone: [phone] No Panel Informationon 10-20 D-Dimer Quantitative (PE/DVT) 0.31 FEU/ug/m 0.27-0.49 [facility] Work Phone: [phone] Comment on above: NORMAL D-Dimer level (<0.50) indicates no DVT or PE. Estimated Creatinine Clearance Calc 98.27 ml/min [facility] Work Phone: [phone] Estimated GFR (MDRD) Amer 130 mL/min >60 [facility] Work Phone: [phone] Comment on above: GFR Calc Estimated GFR (MDRD) Non-Af Amer 107 mL/min >60 [facility] Work Phone: [phone] Comment on above: Non- GFR Calc Troponin I High Sensitivity 4 pg/mL 3.0-54.0 [facility] Work Phone: [phone] Comment on above: Please Note: New Richa t Units and Gender Specific Reference Ranges. For more information see Policy Stat Procedure [facility] High Sensitivity Troponin (TNIH) and attachments. Platelets bldon 10-20-2021 Platelets (Bld) [#/Vol] 207 10*3/uL 150-450 [facility] Work Phone: [phone] Serum or plasma albumin lea urement (mass/volume)on 10-20-2021 Albumin [Mass/Vol] 3.5 g/dL 3.2-5.0 [facility] Work Phone: [phone] Serum or plasma albumin/glob ulin mass ratioon 10-20-2021 Albumin/Globulin [Mass ratio] 1.3 {ratio} 0.9-2.4 [facility] Work Phone: Serum or plasma calcium lea urement (mass/volume)on 10-20-2021 Calcium [Mass/Vol] 8.1 mg/dL 8.5-10.1 [facility] Work Phone: Serum or plasma creatinine m easurement (mass/volume)on 10-20-2021 Creatinine [Mass/Vol] 0.63 mg/dL 0.55-1.02 [facility] Work Phone: Comment on above: The validity of the calculated GFR & GFRAA in patients over 70 years has not been determined. Clinical correlation is essential. Serum or plasma urea nitroge n measurement (mass/volume)on 10-20-2021 Urea nitrogen [Mass/Vol] 7 mg/dL 7-18 [facility] Work Phone: Thin prep Papanicolaou smear with manual screeningon 10-20-2021 Thin prep Papanicolaou smear with manual screening 17 U/L 15-37 [facility] Work Phone: Thin prep Papanicolaou smear with manual screening 9 5-15 [facility] Work Phone: Absolute lymphocyte counton 08-22-2021 Lymphocytes Auto (Unsp spec) [#/Vol] 1.51 10*3/uL 0.83-4.51 [facility] Work Phone: Basophil percentageon 2021 Basophils/100 WBC (Bld) 0.3 % 0-1 [facility] Work Phone: Chloride [Moles/Vol] 86 mmol/L 98-107 [facility] Work Phone: Eosinophils/100 WBC (Bld) 0.5 % 0-5 [facility] Work Phone: Glucose [Mass/Vol] 106 mg/dL 74-106 [facility] Work Phone: Comment on above: Fasting Glucose resu lt from 100 to 125 mg/dL suggests IMPAIRED HOMEOSTASIS per A.D.A. criteria. Lymphocytes/100 WBC (Bld) 20.4 % 19-41 [facility] Work Phone: [phone] Monocytes/100 WBC (Bld) 5.5 % 0-10 [facility] Work Phone: [phone] Neutrophils (Bld) [#/Vol] 5.4 10*3/uL 2.0-7.7 [facility] Work Phone: [phone] Neutrophils/100 WBC (Bld) 73.0 % 47-70 [facility] Work Phone: [phone] Potassium [Moles/Vol] 3.3 mmol/L 3.5-5.1 [facility] Work Phone: [phone] Sodium [Moles/Vol] 118 mmol/L 136-145 [facility] Work Phone: Comment on above: CRITICAL VALUE VERIF IED. CALLED TO HANNY MONGE08/22/21 0315 ELIOT HART READ BACK BY SAME. WBC (Bld) [#/Vol] 7.4 10*3/uL 4.4-11.0 [facility] Work Phone: [phone] Blood erythrocytes count (nu mber/volume)on 08-22-2021 RBC (Bld) [#/Vol] 4.00 10*6/uL 4.2-5.4 [facility] Work Phone: [phone] Blood hemoglobin measurement (mass/volume)on 08-22-2021 Hemoglobin (Bld) [Mass/Vol] 12.8 g/dL 12.0-15.0 [facility] Work Phone: [phone] Blood platelet mean volumeon 08-22-2021 Platelet mean volume (Bld) [Entitic vol] 9.2 fL 6.2-12.0 [facility] Work Phone: [phone] Determination of erythrocyte mean corpuscular volume (MCV)on 08-22-2021 MCV (RBC) [Entitic vol] 86.5 fL 81-99 [facility] Work Phone: [phone] Hematocrit Auto (Bld) [Volum e fraction]on 08-22-2021 Hematocrit (Bld) [Volume fraction] 34.6 % 37-47 [facility] Work Phone: [phone] Laboratory - Chemistry and C hemistry - challengeon 08-22-2021 CO2 [Moles/Vol] 22.0 mmol/L 21.0-32.0 [facility] Work Phone: [phone] Magnesium [Mass/Vol] 1.5 mg/dL 1.6-2.6 [facility] Work Phone: [phone] Urea nitrogen/Creatinine [Mass ratio] 9.8 mg/mg 10-20 [facility] Work Phone: [phone] Laboratory - Hematology and Cell countson 08-22-2021 Erythrocyte distribution width (RBC) [Entitic vol] 37.2 fL 35.1-43.9 [facility] Work Phone: [phone] Erythrocyte distribution width (RBC) [Ratio] 11.6 % 11.6-14.6 [facility] Work Phone: [phone] Immature granulocytes/100 WBC (Bld) 0.300 % 0.0-0.9 [facility] Work Phone: [phone] Comment on above: IG% - Immature Granu locytes (promyelocytes, myelocytes and metamyelocytes) > 1% indicates that a LEFT SHIFT is Present. MCH (RBC) [Entitic mass] 32.0 pg 27.0-32.0 [facility] Work Phone: [phone] Nucleated RBC/100 WBC (Bld) [Ratio] 0 % 0-5 [facility] Work Phone: [phone] MCHC Auto (RBC) [Mass/Vol]on 08-22-2021 MCHC (RBC) [Mass/Vol] 37.0 g/dL 32-36 [facility] Work Phone: [phone] Panel Informationon 08-22 Estimated Creatinine Clearance Calc 101.49 ml/min [facility] Work Phone: [phone] Estimated GFR (MDRD) Amer 135 mL/min >60 [facility] Work Phone: [phone] Estimated GFR (MDRD) Non-Af Amer 111 mL/min >60 [facility] Work Phone: Platelets bldon 08-22-2021 Platelets (Bld) [#/Vol] 215 10*3/uL 150-450 [facility] Work Phone: Serum or plasma calcium lea urement (mass/volume)on 08-22-2021 Calcium [Mass/Vol] 8.2 mg/dL 8.5-10.1 [facility] Work Phone: Serum or plasma creatinine m easurement (mass/volume)on 08-22-2021 Creatinine [Mass/Vol] 0.61 mg/dL 0.55-1.02 [facility] Work Phone: Comment on above: The validity of the calculated GFR & GFRAA in patients over 70 years has not been determined. Clinical correlation is essential. Serum or plasma urea nitroge n measurement (mass/volume)on 08-22-2021 Urea nitrogen [Mass/Vol] 6 mg/dL 7-18 [facility] Work Phone: Thin prep Papanicolaou smear with manual screeningon 08-22-2021 Thin prep Papanicolaou smear with manual screening 10 07-22 [facility] Work Phone: Vital Signs Date Time Vital Sign Value Performing Clinician Facility 04-22-2024 15:48-0500 Body height 162.6 cm Braden Wellkeeper Phone: [facility] 04-22-2024 15:48-0500 Body mass index (BMI) [Ratio] 25.13 kg/m2 [employer] Work Phone: [facility] 04-22-2024 15:48-0500 Body weight 66.41 kg Braden [employer] Work Phone: [facility] 04-22-2024 15:48-0500 Diastolic blood pressure 78 mm[Hg] Braden [employer]keeper Phone: [facility] 04-22-2024 15:48-0500 Heart rate 78 /min Braden Soliman DO Work Phone: [facility] 04-22-2024 15:48-0500 Respiratory rate 16 /min Braden Soliman DO Work Phone: [facility] 04-22-2024 15:48-0500 SaO2% (BldA) [Mass fraction] 97 % Braden Soliman DO Work Phone: [facility] 04-22-2024 15:48-0500 Systolic blood pressure 132 mm[Hg] Braden Soliman DO Work Phone: [facility] 06-26-2023 12:42-0400 Body height 165.[address] Debra Betts Work Phone: [facility] 06-26-2023 12:42-0400 Body mass index (BMI) [Ratio] 28.3 kg/m2 Dr. Debra Betts Work Phone: [facility] 06-26-2023 12:42-0400 Body temperature 97.6 [degF] Dr. Debra Betts Work Phone: [facility] 06-26-2023 12:42-0400 Body weight 77.[address] Debra Betts Work Phone: [facility] 06-26-2023 12:42-0400 Diastolic blood pressure 62 mm[Hg] Dr. Debra Betts Work Phone: [facility] 06-26-2023 12:42-0400 Heart rate 88 /min Dr. Debra Betts Work Phone: [facility] 06-26-2023 12:42-0400 Respiratory rate 16 /min Dr. Debra Betts Work Phone: [facility] 06-26-2023 12:42-0400 SaO2% (BldA) [Mass fraction] 98 % Dr. Debra Betts Work Phone: [facility] 06-26-2023 12:42-0400 Systolic blood pressure 120 mm[Hg] Dr. Debra Betts Work Phone: 9(997)702-974771 [place] [address] 06-25-2023 00:30-0400 Body temperature 97.3 [degF] Dr. Debra Betts Work Phone: 5(137)090-549471 [place] [address] 06-25-2023 00:30-0400 Diastolic blood pressure 83 mm[Hg] Dr. Debra Betts Work Phone: 9(204)341-522471 [place] [address] 06-25-2023 00:30-0400 Heart rate 72 /min Dr. Debra Betts Work Phone: 0(190)816-630071 [place] [address] 06-25-2023 00:30-0400 Respiratory rate 18 /min Dr. Debra Betts Work Phone: 3(905)328-418816 [place] [address] 06-25-2023 00:30-0400 SaO2% (BldA) [Mass fraction] 97 % Dr. Debra Betts Work Phone: 8(614)735-443416 [place] [address] 06-25-2023 00:30-0400 Systolic blood pressure 126 mm[Hg] Dr. Debra Betts Work Phone: 4(526)874-337716 [place] [address] 06-24-2023 22:24-0400 Body height 162.[address] Debra Betst Work Phone: 7(205)157-168016 [place] [address] 06-24-2023 22:24-0400 Body mass index (BMI) [Ratio] 29.2 kg/m2 Dr. Debra Betts Work Phone: 2(141)370-961171 [place] [address] 06-24-2023 22:24-0400 Body weight 77.[address] Debra Betts Work Phone: 8(635)659-353671 [place] [address] 06-20-2023 18:58-0400 Body temperature 98.9 [degF] Dr. Debra Betts Work Phone: 0(278)465-297971 [place] [address] 06-20-2023 18:58-0400 Diastolic blood pressure 80 mm[Hg] Dr. Debra Betts Work Phone: 6(330)592-761071 [place] [address] 06-20-2023 18:58-0400 Heart rate 100 /min Dr. Debra Betts Work Phone: 8(056)262-843271 [place] [address] 06-20-2023 18:58-0400 Respiratory rate 19 /min Dr. Debra Betts Work Phone: 5(663)357-342116 [place] [address] 06-20-2023 18:58-0400 SaO2% (BldA) [Mass fraction] 97 % Dr. Debra Betts Work Phone: 3(535)977-477816 [place] [address] 06-20-2023 18:58-0400 Systolic blood pressure 110 mm[Hg] Dr. Debra Betts Work Phone: 6(689)989-960316 [place] [address] 06-20-2023 15:24-0400 Body height 162.[address] Debra Betts Work Phone: 5(007)766-755116 [place] [address] 06-20-2023 15:24-0400 Body mass index (BMI) [Ratio] 30 kg/m2 Dr. Debra Betts Work Phone: 6(244)796-145116 [place] [address] 06-20-2023 15:24-0400 Body weight 79.[address] Debra Betts Work Phone: 9(077)244-886816 [place] [address] 06-04-2023 13:35-0400 Body temperature 98.5 [degF] Dr. Debra Betts Work Phone: 0(737)301-775816 [place] [address] 06-04-2023 13:35-0400 Diastolic blood pressure 84 mm[Hg] Dr. Debra Betts Work Phone: 1(812)952-754216 [place] [address] 06-04-2023 13:35-0400 Heart rate 92 /min Dr. Debra Betts Work Phone: 1(961)239-191916 [place] [address] 06-04-2023 13:35-0400 Respiratory rate 16 /min Dr. Debra Betts Work Phone: 9(565)470-769116 [place] [address] 06-04-2023 13:35-0400 SaO2% (BldA) [Mass fraction] 99 % Dr. Debra Betts Work Phone: 2(373)067-619616 [place] [address] 06-04-2023 13:35-0400 Systolic blood pressure 152 mm[Hg] Dr. Debra Betts Work Phone: 8(955)813-974516 [place] [address] 10-20-2021 22:53-0400 Diastolic blood pressure 91 mm[Hg] [facility] Work Phone: 10-20-2021 22:53-0400 Heart rate 65 /min [facility] Work Phone: 10-20-2021 22:53-0400 Respiratory rate 18 /min [facility] Work Phone: 10-20-2021 22:53-0400 SaO2% (BldA) [Mass fraction] 99 % [facility] Work Phone: 10-20-2021 22:53-0400 Systolic blood pressure 118 mm[Hg] [facility] Work Phone: 10-20-2021 21:08-0400 Body height 165.1 cm [facility] Work Phone: 10-20-2021 21:08-0400 Body mass index (BMI) [Ratio] 30.4 kg/m2 [facility] Work Phone: 10-20-2021 21:08-0400 Body temperature 97.5 [degF] [facility] Work Phone: 10-20-2021 21:08-0400 Body weight 82.9 kg [facility] Work Phone: 08-22-2021 01:34-0400 Body height 165.1 cm [facility] Work Phone: 08-22-2021 01:34-0400 Body mass index (BMI) [Ratio] 26.6 kg/m2 [facility] Work Phone: 08-22-2021 01:34-0400 Body temperature 97.5 [degF] [facility] Work Phone: 08-22-2021 01:34-0400 Body weight 72.57 kg [facility] Work Phone: 08-22-2021 01:34-0400 Diastolic blood pressure 89 mm[Hg] [facility] Work Phone: 08-22-2021 01:34-0400 Heart rate 66 /min [facility] Work Phone: 08-22-2021 01:34-0400 Respiratory rate 18 /min [facility] Work Phone: 08-22-2021 01:34-0400 SaO2% (BldA) [Mass fraction] 100 % [facility] Work Phone: 08-22-2021 01:34-0400 Systolic blood pressure 134 mm[Hg] [facility] Work Phone: Encounters Encounter Date Encounter Type Care Provider Facility Start: 10-06-2024 ambulatory [facility] Facility[facility] Start: 08-17-2024 End: 08-17-[address] Henny Rahman MD Work Phone: [facility] Work Phone: Start: 08-17-2024 End: 08-17-[address] Henny Rahman MD Work Phone: [facility] Work Phone: Start: 08-17-2024 End: 08-17-2024 [facility] Facility:[facility] Start: 07-09-2024 End: 07-09-[address] Henny Rahman MD Work Phone: [facility] Work Phone: Start: 07-09-2024 End: 07-09-2024 Patient encounter procedure Shane Florian [facility]TER-C -[facility] Work Phone: Start: 07-09-2024 End: 07-09-2024 ambulatory Henny Rahman Facility:[facility] Start: 07-02-2024 End: 07-02-2024 ambulatory SHANE Peraza [facility] Start: 04-23-2024 End: 04-23-[address] Braden Soliman DO -Laboratory Work Phone: Start: 04-22-2024 End: 04-22-2024 Office outpatient new 30 minutes Braden Soliman DO Work Phone: [facility] Comment on above: C. difficile colitis (Primary Dx) Start: 04-22-2024 End: 04-23-2024 ambulatory [facility] Start: 02-19-2024 End: 02-19-2024 ambulatory [facility] Start: 02-09-2024 End: 02-09-2024 ambulatory [facility] Start: 01-23-2024 End: 01-23-2024 ambulatory [facility] Start: 07-16-2023 ambulatory Debra kimbrough MD Work Phone: [facility] [place] Start: 07-11-2023 End: 07-11-[address] Debra Betts Work Phone: [facility] Work Phone: Start: 07-11-2023 End: 07-11-[address] Debra Betts Work Phone: [facility] [place] Start: 06-27-2023 End: 06-27-[address] Debra Betts Work Phone: [facility] Work Phone: Start: 06-27-2023 End: 06-27-[address] Debra Betts Work Phone: [facility] [place] Start: 06-26-2023 End: 06-26-[address] Debra Betts Work Phone: [facility] Work Phone: Start: 06-24-2023 End: 06-25-2023 Emergency department patient [facility] Start: 06-20-2023 End: 06-20-2023 Emergency department patient visit [facility] Start: 06-04-2023 End: 06-04-[address] Debra Betts Work Phone: [facility] Work Phone: Start: 08-07-2022 ambulatory Debra kimbrough MD Work Phone: [facility] Start: 10-20-2021 End: 10-20-2021 Emergency department patient visit [facility] Start: 09-05-2021 ambulatory Debra kimbrough MD Work Phone: [facility] Start: 08-22-2021 End: 08-22-2021 Emergency department patient visit [facility] Start: 06-05-2021 Phys/qhp online evaluation & management service Jeronimo Sanders TRUCK DRIVER'S OFFSIDER.SURGICAL DEVICE SALES REPRESENTATIVE Work Phone: [facility] Comment on above: Viral upper respirat ory infection (Primary Dx) Start: 02-06-2021 Patient encounter status Jeronimo Sanders TRUCK DRIVER'S OFFSIDER.SURGICAL DEVICE SALES REPRESENTATIVE Work Phone: [facility] Work Phone: Start: 11-08-2016 Patient encounter status Jeronimo Sanders TRUCK DRIVER'S OFFSIDER.SURGICAL DEVICE SALES REPRESENTATIVE Work Phone: [facility] Work Phone: Procedures Date Procedure Procedure Detail Performing Clinician Start: 08-17-2024 X-ray of lumbar spin e, two or three views Dr. Henny Rahman MD Work Phone: Start: 08-17-2024 X-ray of cervical spine Dr. Henny Rahman MD Work Phone: Start: 07-09-2024 MRI of brain with contrast Dr. Henny Rahman MD Work Phone: Start: 04-23-2024 [address] diff[address] e detection Dr. Henny Rahman MD Work Phone: Start: 06-24-2023 Plain chest X-ray Dr. Geri Betts Work Phone: Start: 06-20-2023 US scan of gallbladder Dr. Debra Betts Work Phone: Start: 06-20-2023 Computed tomography of abdomen and pelvis with intravenous contrast Dr. Debra Betts Work Phone: Start: 06-20-[address] e detection Dr. Debra Betts Work Phone: Start: 06-20-[address] Debra Betts Work Phone: Start: 06-20-2023 SARS-CoV-2, Influenz a & RSV (PCR) Dr. Debra Betts Work Phone: Start: 10-20-2021 Plain chest X-ray Start: 02-06-2021 Adult depression scr eening assessment Jeronimo Sanders TRUCK DRIVER'S OFFSIDER.SURGICAL DEVICE SALES REPRESENTATIVE Work Phone: Start: 02-06-2021 Lipid 1996 panel - S dyan or Plasma Debra Betts MD Work Phone: Start: 09-13-2016 Mammography Jeronimo aceves TRUCK [employer]IVER'S OFFSIDER.SURGICAL DEVICE SALES REPRESENTATIVE Work Phone: Plan of Treatment Date Care Activity Detail Author Start: 06-27-2026 DTaP/Tdap/Td Vaccine s (2 - Td or Tdap) DTaP/Tdap/Td Vaccines (2 - Td or Tdap) [facility] Start: 06-27-2026 Urine microalbumin profile [facility] Start: 02-06-2026 Lipid panel Lipid Screening [facility] Start: 02-06-2026 LIPID SCREEN LIPID SCREEN [facility] Start: 07-09-2024 MR Brain WO and W co ntrast IV [facility] Start: 07-09-2024 MRI of brain with contrast Brain W/W O Contrast [facility] Start: 02-07-2024 [facility]ABET[facility] Start: 02-07-2024 Diabetes Screening Diabetes Screenin g [facility] Start: 11-09-2023 COVID-19 Vaccine ( season) COVID-19 Vaccine ( season) [facility] Start: 11-09-2023 Influenza vaccination Influenza Vacc ine (#1) [facility] Start: 06-24-2023 [facility] Start: 06-24-2023 Plain chest X-ray Chest 1 View (Port able) [facility] Start: 06-24-2023 XR Chest Single view [facility]ffi [facility] Start: 06-20-2023 End: 06-20-2023 [facility] Start: 06-20-2023 Enteric precautions [facility] Start: 06-20-2023 Enteric Bacteriology Enteric Bacteri ology [facility] Start: 03-10-2023 Behavioral Health Screening Behavioral Health Screening [facility] Start: 2023 Pneumococcal vaccination Pneum ococcal Vaccine (1 of 1 - PCV) [facility] Start: 2023 Shingrix Vaccine (1 of 2) Keith grix Vaccine (1 of 2) [facility] Start: 2023 Zoster Vaccines (1 of 2) Zoste r Vaccines (1 of 2) [facility] Start: 11-08-2022 Covid-19 Vaccine ( season) Covid-19 Vaccine ( season) [facility] Start: 03-10-2022 DEPRESSION ASSESSMENT DEPRESSION ASS ESSMENT [facility] Start: 02-06-2022 Adult depression scr [facility] assessment DEPRESSION SCREENING [facility] Start: 02-06-2022 HEPATITIS C SCREENING HEPATITIS C [facility] Comment on above: Postponed from 01/15 (Declined at this time) Start: 09-13-2021 HPV TESTING HPV TESTING [facility] Start: 09-13-2021 PAP TESTING PAP TESTING [facility] Start: 09-13-2021 Screening for malign ant neoplasm of cervix [facility] Start: 2018 COLOGUARD (FIT-DNA) COLOGUARD (FIT-D NA) [facility] Start: 2018 Colonoscopy COLONOSCOPY [facility] Start: 2018 COLORECTAL CANCER SCREENING COLORECTAL CANCER SCREENING [facility] Start: [address] COLONOGRAPHY [facility] Start: 2018 FECAL OCCULT BLOOD FECAL OCCULT BLOO D [facility] Start: 2018 Screening for malign ant neoplasm of colon [facility] Start: 2018 SIGMOIDOSCOPY SIGMOIDOSCOPY Clekika hernández [facility] Start: 09-13-2017 Mammography MAMMOGRAM [facility] Start: 09-13-2017 Screening for malign ant neoplasm of breast Mammogram Screening [facility] Start: 2013 Screening for malign ant neoplasm of breast Mammogram [facility] Start: 1994 Screening for malign ant neoplasm of cervix [facility] Start: 01-16-1992 Hepatitis B Vaccine (1 of 3 - 19+ 3-dose series) Hepatitis B Vaccine (1 of 3 - 19+ 3-dose series) [facility] Start: 01-16-1992 Hepatitis B Vaccines (1 of 3 - 19+ 3-dose series) Hepatitis B Vaccines (1 of 3 - 19+ 3-dose series) [facility] Start: 1991 HEPATITIS C SCREENING HEPATITIS C [facility] Start: 1991 Hepatitis C screening Hepatitis C [facility] Start: 1979 PNEUMOCOCCAL (1 - PCV) PNEUMOCOCCAL (1 - PCV) [facility] Start: 1979 Pneumococcal vaccination Pneum ococcal Vaccine (1 of 2 - PCV) [facility] Start: 1978 COVID-19 VACCINE (1) COVID-19 VACCIN E (1) [facility] Start: 1974 MMR Vaccines (1 of 1 - Standard series) MMR Vaccines (1 of 1 - Standard series) [facility] Start: 1973 COVID-19 VACCINE (#1) COVID-19 VACCI NE (#1) [facility] Start: 1973 HEPATITIS B (1 of 3 - 3-dose series) HEPATITIS B (1 of 3 - 3-dose series) [facility] Start: 1973 HIV screening HIV Screening [facility] Start: 1973 Lipid panel Lipid Panel [facility] Start: 1973 Screening for malign ant neoplasm of colon [facility] Start: 1973 Yearly Adult Physical Yearly Adult P hysical [facility] Alanine aminotransfe rase [Enzymatic activity/volume] in Serum or Plasma [facility] Albumin [Mass/volume ] in Serum or Plasma [facility] Alkaline phosphatase [Enzymatic activity/volume] in Serum or Plasma [facility] Aspartate aminotrans ferase [Enzymatic activity/volume] in Serum or Plasma [facility] Bilirubin, total measurement [facility] Bilirubin.direct [Mass/volume] in Serum or Plasma [facility] Clostridioides diffi cile toxin A+B tcdA+tcdB genes [Presence] in Stool by STARLA with probe detection C. difficile, PCR Microbiology Routine C. difficile colitis Ordered: 04/22/2024 [facility] Service Area Work Phone: Comment on above: Ordered: 04/22/2024 Gastrointestinal pat hogens panel - Stool by STARLA with probe detection [facility] End: 09-06-2023 ANDREW SCREENING ANDREW SCREENING Radiology Routine Encounter for screening mammogram for breast cancer 1 Occurrences starting 08/07/2022 until 09/06/2023 [facility] Work Phone: Comment on above: 1 Occurrences starti ng 08/07/2022 until 09/06/2023 End: 08-14-2024 MG Breast Screening ANDREW SCREENING Radiology Routine Encounter for screening mammogram for breast cancer 1 Occurrences starting 07/16/2023 until 08/14/2024 [facility] Work Phone: Comment on above: 1 Occurrences starti ng 07/16/2023 until 08/14/2024 Patient Education [facility] Work Phone: Patient referral [facility] Work Phone: End: 10-05-2022 Screening mammography bi 2-view breast inc cad ANDREW SCREENING Radiology Routine Encounter for screening mammogram for breast cancer 1 Occurrences starting 09/05/2021 until 10/05/2022 [facility] Work Phone: Comment on above: 1 Occurrences starti ng 09/05/2021 until 10/05/2022 Tobacco use cessatio n education [facility] Total protein measurement [facility] Immunizations Immunization Date Immunization Notes Care Provider Fa nino 06-27-2016 tetanus toxoid, redu cindy diphtheria toxoid, and acellular pertussis vaccine, adsorbed Jeronimo Sanders TRUCK DRIVER'S OFFSIDER.SURGICAL DEVICE SALES REPRESENTATIVE Work Phone: [facility] Payers Date Payer Category Payer Self-pay [id number] 2024 Unknown [id number] 2019 Unknown [id number] 2019 Unknown [id number] 1973 Unknown [id number] [id number]. 2.903 1973 Unknown [id number]. 2.1245 1973 Unknown [id number]. 2.1245 1973 Unknown [id number]. 2.1244 1973 Unknown [id number] [id number]. 2.651 Private Health Insurance GENERIC COMMERCIAL [id number] Self-pay SELF PAY ER DEPOSIT [id number] Unknown [id number] [id number] Unknown [id number] [id number]. 2.462 Unknown [id number] 2..[id number]. 2.462 Unknown [id number] [id number]. 2.462 Social History Date Type Detail Facility Start: 09-13-2016 End: 09-23-2023 Tobacco smoking status NHIS Smokes tobacco daily [facility] History of tobacco use Cigarette Smoker C [facility] Start: 02-06-2021 Alcohol intake Current drinker of alcohol (finding) [facility] Start: 02-04-2021 History SDOH Alcohol Frequency 2 [facility] Start: 09-13-2016 History SDOH Alcohol Comment Rarely [facility] Start: 02-04-2021 History SDOH Social Connections Phone 5 [facility] Start: 02-04-2021 History SDOH Social Connections Synagogue 1 [facility] Start: 02-04-2021 History SDOH Social Connections Living 8 [facility] Start: 02-04-2021 History SDOH Physical Activity MPS 3 [facility] Start: 02-04-2021 History SDOH Stress 4 [facility] Start: 1975 Sex Assigned At Female [facility] Start: 08-22-2021 End: 06-26-2023 Tobacco smoking status INIS Unknown if ever smoked [facility] Start: 09-13-2016 End: 04-02-2022 Cigarettes smoked current (pack per day) - Reported 1 [facility] Start: 09-13-2016 End: 04-22-2024 Tobacco use and exposure Smokeless tobacco non-user [facility] Work Phone: Start: 02-04-2021 End: 04-02-2022 Social connection and isolation panel [facility] Do you belong to any clubs or organizations such as roman catholic groups, unions, fraternal or athletic groups, or school groups? No [facility] Are you now , , , , never or living with a partner? Living with partner [facility] How often to you hav e a drink containing alcohol? Monthly or less [facility] How many standard dr inks containing alcohol do you have on a typical day? 3 or 4 [facility] How often do you hav e 6 or more drinks on 1 occasion? Less than monthly [facility] How hard is it for y ou to pay for the very basics like food, housing, medical care, and heating Not hard at all [facility] Do you feel stress - tense, restless, nervous, or anxious, or unable to sleep at night because your mind is troubled all the time - these days [OSQ] Rather much [facility] (I/We) worried whebryon er (my/our) food would run out before (I/we) got money to buy more. Never true [facility] Start: 06-05-2021 Gender identity Identifies as female gender (finding) [facility] Start: 06-05-2021 Sexual orientation Homosexual (finding) [facility] Start: 04-22-2024 Alcoholic beverage intake Ex-drinker (finding) [facility] Work Phone: Start: 04-12-2024 End: 04-22-2024 Exposure to SARS-CoV-2 (event) Not sure [facility] Mental Status Date Assessment Result Facility 10-20-2021 Cognitive function Level Of Cons ciousness Awake;Alert;Appropriate;Follow s Commands [facility] Work Phone: 08-22-2021 Cognitive function Level Of Cons ciousness Awake;Alert;Appropriate;Follow s Commands [facility] Work Phone: Clinical Notes 06-05-2021 to 08-17-2024 Braden Soliman, DO - 04/22/2024 3:45 PM EST Note Date & Type Note Facility 08-17-2024 Radiology Diagnostic study note [facility] Imaging Services [address] [place], [place] [address] Lumbar Spine 2 or 3 Views MR#: [id number] Acct: [id number] Name: SETH GOFF Rep #: [id number] : 1975 F 49 From: Nic King MD PCP: Dr. Henny Rahman MD Status: REG CLI Study:Lumbar Spine 2 or 3 Views Date of Exam: 08/17/24 Exam# [id number] Ordering Dr: RAHUL GROSSMAN PROCEDURE: LUMBAR SPINE 2 OR 3 VIEWS 08/17/2024 REASON FOR EXAM: CHRONIC BACK PAIN TECHNIQUE: 3 view(s) of the lumbar spine COMPARISON: None FINDINGS: Calcifications are noted in the right mid abdomen which may represent gallstoneswith the largest measuring 1.4 cm. There is grade 2 spondylolisthesis at L5-S1, 1.4 cm. 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 There is loss of disc height which is most severe from L4-S1. Vertebral body height is maintained. Mineralization is normal. Vascular calcifications are visible. RAD/Lumbar Spine 2 or 3 Views IMPRESSION: Calcifications are noted in the right mid abdomen which may represent gallstoneswith the largest measuring 1.4 cm. There is grade 2 spondylolisthesis at L5-S1, 1.4 cm. 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 There is loss of disc height which is most severe from L4-S1. Reading Location: [facility] CC: RAHUL FLORIAN; Dr. Henny Rahman MD ~ Manager Grant: Signed [facility] 08-17-2024 Radiology Diagnostic study note [facility] Imaging Services [address] [place] [address] Cerv Spine 2 or 3 Views MR#: [id number] Acct: [id number] Name: SETH GOFF Rep #: [id number] : 1975 F 49 From: Nic King MD PCP: Dr. Henny Rahman MD Status: REG CLI Study:Cerv Spine 2 or 3 Views Date of Exam: 08/17/24 Exam# [id number] Ordering Dr: RAHUL GROSSMAN PROCEDURE: CERV SPINE 2 OR 3 VIEWS 08/17/2024 REASON FOR EXAM: HEADACHES TECHNIQUE: 3 views of the cervical spine. COMPARISON: None FINDINGS: There is loss of the lordosis. Vertebral body height and alignment are maintained. There is loss of disc height at C6-7. The facet articulations are aligned. Prevertebral soft tissues are within normal limits. The odontoid appears intact. Mineralization is normal. There is no visible atherosclerosis. RAD/Cerv Spine 2 or 3 Views IMPRESSION: There is loss of the lordosis. There is loss of disc height at C6-7. Reading Location: [facility] CC: RAHUL FLORIAN; Dr. Henny Rahman MD ~ Manager Grant: Signed [facility] 04-22-2024 History of Present illness Narrative Subjective Patient ID: Seth Goff is a 49 y.o. female who presents for Follow-up (Pt presents today as a follow up for C-Diff. Pt states that she feels better from the C-Diff, but she does have complaints of soft, crumbly stool. Pt states she is still having digestive issues, including abdominal pain (different locations each time, although it presents mostly in the belly button area), heartburn, and stool change (pt has pictures of this). Pt states that when she is feeling pain, stool becomes hard and painful. Pt has tried the fod diet and was never able to find a cause. ). HPI patient is a pleasant 49-year-old female diagnosed with C. difficile colitis approxi-1 year ago. She called the office in February with acute chronic diarrhea stating her stools never been normal averaging 6 bowel movements daily. Repeat stool for C. difficile was positive she was treated with a 10-day course of vancomycin she has been taking probiotics throughout her initial diagnosis of C. difficile. She presents today in follow-up states her stool is still loose but starting be semiformed averaging 4 bowel meds daily with urgency denies any incontinence or tenesmus. No rectal bleeding. Review of Systems Constitutional: Negative. HENT: Negative. Eyes: Negative. Respiratory: Negative. Cardiovascular: Negative. Gastrointestinal: Positive for diarrhea. Endocrine: Negative. Genitourinary: Negative. Neurological: Negative. Hematological: Negative. Objective Physical Exam Vitals and nursing note reviewed. Constitutional: Appearance: Normal appearance. HENT: Head: Normocephalic. Mouth/Throat: Mouth: Mucous membranes are moist. Pharynx: Oropharynx is clear. Eyes: Conjunctiva/sclera: Conjunctivae normal. Pupils: Pupils are equal, round, and reactive to light. Cardiovascular: Rate and Rhythm: Normal rate and regular rhythm. Pulses: Normal pulses. Heart sounds: Normal heart sounds. Pulmonary: Effort: Pulmonary effort is normal. Breath sounds: Normal breath sounds. Abdominal: General: Abdomen is flat. Bowel sounds are normal. Palpations: Abdomen is soft. Musculoskeletal: Cervical back: Normal range of motion and neck supple. Skin: General: Skin is warm and dry. Neurological: General: No focal deficit present. Mental Status: She is alert and oriented to person, place, and time. Psychiatric: Behavior: Behavior normal. Assessment/Plan Diagnoses and all orders for this visit: C. difficile colitis - C. 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 difficile for PCR if positive treat with Dificid. Continue probiotics Braden Soliman DO 04/22/24 4:09 PM documented in this encounter [facility] Work Phone: 07-16-2023 Note Patient Outreach (IN TMMN) SETH GOFF ([id number]) 1975 F Date Time Provider Department 07/16/23 DEBRA BETTS During your visit today, we recorded the following information about you: Allergies As of Date: 07/16/2023 Noted Allergy Reaction CODEINE 02/24/2009 11 - Vomiting Date Reviewed: 02/06/2021 Reviewed by: Alessandra Hooker (Shey) - Fully Assessed Visit Diagnosis:Encounter for screening mammogram for breast cancer [Z12.31] Order(s):[facility] SCREENING [0033920] Order #: [id number] FUTURE Prescriptions as of 07/21/2023 - carBAMazepine ER (CARBATROL) 300 mg 12 hr capsule Take 1 capsule by mouth twice daily. - IBUPROFEN (MOTRIN ORAL) Take by mouth. Problem List As Of Date 07/16/2023 Noted Resolved Trigeminal neuralgia of right side of face [G50*05/28/2016 Dysmenorrhea [N94.6] Smoker [F17.200] 11/08/2016 Encounter for gynecological examination without*11/08/2016 Well adult exam [Z00.00] 05/09/2017 Low sodium levels [E87.1] 10/29/2017 Encounter for screening mammogram for breast ca*05/15/2018 Encounter for screening for diabetes mellitus [*09/21/2019 Encounter Status:Closed by EPIC, PRODUSER on 07/21/23 [facility] 06-24-2023 Discharge summary Note Date/Time June 24, 2023 10:48pm [facility] Medical Records Department [address] [place] [address] Emergency Department Summary 06/24/23 MR#: [id number] Acct: [id number] Name: SETH GOFF Rep #:[id number] : 1975 48 From: Tyler gAuilera DO PCP: Dr. Henny Rahman MD Status:REG ER Location: ED HPI History of Present Illness Chief Complaint: Allergic Reaction Narrative Narrative: 48-year-old female presenting with concern for allergic reaction. Patient states has taken 16 doses of oral vancomycin since diagnosed with C. difficile. She states her stools are now being formed and are less liquidy. She has some occasional cramping but her abdominal pain is improving. Denies any fevers or chills. She states that approximately 5 hours ago she started to have some mildleft-sided pain in her chest which radiated up to the left around the back of her head to the right and up into her scalp and felt like an electric shock. Patient states this only lasted for short while and then resolved. She never had any abdominal pain with it. She was concerned this could possibly due to the vancomycin although she has not any symptoms within the past. She gave a list of food that she is eating and it is crackers, oatmeal, applesauce. She did not think this would elicit any of her symptoms. Patient states that she did have some tingling in her face and her hands however this is resolved. She did not have any facial droop, slurred speech. She denies any problem moving her extremities. Denies any headache. PFSH PFSH Medical History C. difficile colitis Hyponatremia Infected dental caries Smoker Home Medications vancomycin 125 mg capsule (Vancocin) 125 mg PO Q6H #40 caps 06/20/23 [Rx Last Taken Unknown] Allergy/AdvReac Type Severity Reaction Status Date / Time codeine AdvReac Vomiting Verified 06/24/23 21:05 Social History Smoking Status: Current every day smoker tobacco type: cigarettes substance use type: does not use ROS ROS ED Constitutional Constitutional ED: Denies chills, fever(s) or sweats Eyes Eyes: Denies blurry vision or change in vision ENT ENT ED: Denies ear pain or sore throat Cardiovascular Cardiovascular: Reports chest pain; Denies palpitations or racing heartbeat Respiratory/Chest Respiratory/Chest: Denies cough, dyspnea or sputum Gastrointestinal Gastrointestinal: Denies abdominal pain, constipation, diarrhea, nausea or vomiting Genitourinary Genitourinary ED: Denies dysuria, hematuria or urinary frequency Musculoskeletal Musculoskeletal: Denies arthralgias, myalgias or neck pain Integumentary Denies abscess, Abrasions or rash Neurologic Neurologic: Denies headache(s), paresthesias or weakness Psychiatric Psychiatric: Denies anxiety, depression, suicidal ideation or suicidal thoughts Endocrine Endocrinology: Denies polydipsia or polyuria EXAM Physical Exam Const Vital Signs: 06/24/23 21:05 06/24/23 23:22 Temperature 98.1 F 98.2 F Temperature Source Temporal Oral Pulse Rate 95 70 Respiratory Rate 18 18 Blood Pressure 146/93 H 121/82 H Blood Pressure Mean 110 95 Pulse Ox 98 98 Oxygen Delivery Method Room Air Room Air Positive well nourished General Appearance ED: NAD HEENT Reports moist mucous membranes Eyes PERRL and EOMs intact bilaterally Neck no lymphadenopathy Chest Wall inspection of chest normal Resp normal respiratory effort and clear to auscultation bilaterally Auscultation: Negative for rales, rhonchi or wheezes Cardio regular rate and regular rhythm GI normal to inspection, nondistended, normoactive bowel sounds Back/Spine no CVA tenderness Neuro oriented x3 and CN's II-XII intact bilaterally Sensorium / Orientation: alert Psych mental status grossly normal MDM MDM MDM Narrative Medical decision making narrative: Patient presenting with some atypical chest pain that radiated up into her neck around her head and she had some tingling in her head hands. Differential includes ACS although she has no risk factors. Also includes pneumonia, costochondritis, dehydration, anemia, electrolyte normalities, GERD, gastritis, allergic. Considered PE however patient is PERC negative. Will obtain CBC to assess white blood cell count, hemoglobin and platelet. BMP to assess renal function electrodes, glucose. High-sensitivity troponin EKG will be obtained toassess for ischemia/arrhythmia. Chest x-ray to rule out pneumonia. Vital signscurrently stable and she is afebrile. Lab work is reassuring as her leukocytosis has improved down to 6.1. Renal function and electrolytes unremarkable. High-sensitivity troponin is 4. EKG patient was given a liter normal saline. EKG on my interpretation shows sinus rhythm at 64 beats minute positive ischemic change or dysrhythmia. Patient workup ultimately normal. Sheis feeling better as far as her C. difficile goes. I do not believe she needs repeat troponin or further workup. I do believe she can continue to take her vancomycin as she has been tolerating this now for 16 doses. I do not believe Isee any signs of allergic reaction. She is well-appearing with normal vitals. Discharged stable condition. Impression: 1. Atypical chest pain 2. History of C. difficile Lab Data Labs: Laboratory Results - last 24 hr 06/24/23 22:20 WBC 6.1 RBC 4.26 Hgb 12.9 Hct 36.7 L MCV 86.2 MCH 30.3 MCHC 35.1 RDW Std Deviation 38.6 RDW Coeff of Huang 12.2 Plt Count 252 MPV 9.3 Immature Gran % (Auto) 0.300 Neut % (Auto) 64.5 Lymph % (Auto) 26.1 Bamberg % (Auto) 7.3 Eos % (Auto) 1.3 Baso % (Auto) 0.5 Absolute Neuts (auto) 4.0 Absolute Lymphs (auto) 1.60 Nucleated RBC % 0 Sodium 133 L Potassium 3.6 Chloride 101 Carbon Dioxide 25.0 Anion Gap 7 BUN 3 L Creatinine 0.61 Estim Creat Clear Calc 111.09 Est GFR (MDRD) Af Amer 133 Est GFR (MDRD) Non-Af 110 BUN/Creatinine Ratio 4.9 L Glucose 112 H Calcium 8.7 Troponin I High Sens 4 Discharge Plan Triage Chief Complaint: Allergic Reaction Other Complaint: Chest Pain Neuro S/Sx ED Provider: Tyler Aguilera Dx/Rx/DC Orders Instructions: ED Chest Pain, Noncardiac Prescriptions: No Action vancomycin [Vancocin] 125 mg capsule 125 mg PO Q6H Qty: 40 0RF Primary Care Provider: Henny Rahman Referrals: Henny Rahman MD [Primary Care Provider] - Disposition Disposition: Home, Self Care What to do if you have Problems For any increased pain, shortness of breath, bleeding, nausea or vomiting, chestpain, or any unexpected problems, contact your Primary Care Provider. Call [facility] ([phone]) or report to the closest Emergency Room. Call 911 if necessary. 06/25/23 0020 <Electronically signed by Tyler Aguilera DO> Cosigner Signature (if applicable): CC: Dr. Henny Rahman MD ~ Signed [facility] Work Phone: [phone] 346-719505-31-2023 NotePatient Outreach (INTMMN) SETH GOFF ([id number]) 1975 F Date Time Provider Department 08/07/22 DEBRA BETTS INTMMN During your visit today, we recorded the following information about you: Allergies As of Date: 08/07/2022 Noted Allergy Reaction CODEINE 02/24/2009 11 - Vomiting Date Reviewed: 02/06/2021 Reviewed by: Alessandra Hooker LPN - Fully Assessed Visit Diagnosis:Encounter for screening mammogram for breast cancer [Z12.31] Order(s):[facility] SCREENING [[id number]] Order #: [id number] FUTURE Prescriptions as of 08/12/2022 - carBAMazepine ER (CARBATROL) 300 mg 12 hr capsule Take 1 capsule by mouth twice daily. - IBUPROFEN (MOTRIN ORAL) Take by mouth. Problem List As Of Date 08/07/2022 Noted Resolved Trigeminal neuralgia of right side of face [G50*05/28/2016 Dysmenorrhea [N94.6] Smoker [F17.200] 11/08/2016 Encounter for gynecological examination without*11/08/2016 Well adult exam [Z00.00] 05/09/2017 Low sodium levels [E87.1] 10/29/2017 Encounter for screening mammogram for breast ca*05/15/2018 Encounter for screening for diabetes mellitus [*09/21/2019 Encounter Status:Closed by TripIt, PRODUSER on 08/12/22[facility] 06-05-2021 History of Present illness Narrative* Jeronimo Sanders APRN.CNP - 06/05/2021 2:46 PM EDT This is an Express Care eVisit note for Seth Goff eVisit/Questionnaire reviewed The chief complaint for the visit - Patient presents with: Sinus Problem Recommendations/Treatment plan - most consistent with viral URI. See My Chart Message to patient. Recommendation for follow up - PRN Time spend was 5 minutes. Jeronimo Sanders APRN.CNP [facility] Diagnosis Viral upper respiratory infection- Primary Acute upper respiratory infections of unspecified site documented in this encounter [facility] noteNo assessment information availableWMemorial [facility] Work Phone: Evaluation note* Diagnosis Encounter for screening mammogram for breast cancer documented in this encounter [facility] note* Diagnosis Encounter for screening mammogram for breast cancer documented in this encounter [facility] note* Diagnosis Onset Date Resolution Status Acute sinusitis acute [facility] Work Phone: Evaluation note* Diagnosis Onset Date Resolution Status Acute sinusitis resolved Cognitive complaints noneact alexus Screening declined by patient noneactive Immunization declined noneac tive Smokes cigarettes noneactive Screening for cardiovascular condition noneactive Establishing care with new doctor, encounter for noneactive Fatigue noneactive Hyponatremia noneactive Atypical chest pain noneacti ve [facility] Work Phone: Evaluation note* Diagnosis Encounter for screening mammogram for breast cancer [facility] Diagnosis C. difficile colitis- Primary documented in this encounter [facility] Work Phone: Reason for referral (narrative)* Diagnostic Procedure Only (Routine) - Pending Review Specialty Diagnoses / Procedures Referred By Loida layton Referred To Contact [facility] Diagnoses Encounter for screening mammogram for breast cancer Procedures ANDREW SCREENING SCREENING MAMMOGRAPHY BI 2-VIEW BREAST INC CAD Debra Betts MD [address] [place] [address] [facility] [address] [place] [address] Referral ID Status Reason Start Date Expiration Date Visits Requested Visits Authorized [id number] Pending Review Auto-Generat ed Referral 09/05/2021 10/05/2022 [address] [facility] for referral (narrative)* Diagnostic Procedure Only (Routine) - Closed Specialty Diagnoses / Procedures Referred By Loida layton Referred To Contact [facility] Diagnoses Encounter for screening mammogram for breast cancer Procedures ANDREW SCREENING SCREENING MAMMOGRAPHY BI 2-VIEW BREAST INC CAD Debra Betts MD [address] [place] [address] [facility] [address] [place] [address] Referral ID Status Reason Start Date Expiration Date V isits Requested Visits Authorized [id number] Closed Auto-Generate d Referral 08/07/2022 09/06/2023 [address] [facility] for referral (narrative)* Diagnostic Procedure Only (Routine) - Closed Specialty Diagnoses / Procedures Referred By Loida layton Referred To Contact [facility] Diagnoses Encounter for screening mammogram for breast cancer Procedures ANDREW SCREENING SCREENING MAMMOGRAPHY BI 2-VIEW BREAST INC CAD Debra Betts MD [address] [place] [address] [facility] [address] [place] [address] Referral ID Status Reason Start Date Expiration Date Visits Requested Visits Authorized [id number] Closed Financial Clearance Required - OON Payor OON Notification Letter Clearance not met - patient not scheduled & unable to contact patient 07/16/2023 03/09/2024 1 1 [facility] ([facility])No reason for referral information availableWMemorial Health [facility] Work Phone: Chief Complaint and Reason for Visit Chief Complaint dizz Chief Complaint dizz chest pain Chief Complaint SORE THROAT/PHELPS/BA/BI LAT EAR PAIN DIARRHEA Reason for Visit Acute sinusitis Chief Complaint SORE THROAT/PHELPS/BA/BI LAT EAR PAIN DIARRHEA cp, neuro s/s, allergic reaction? Reason for Visit Acute sinusitis Chief Complaint SORE THROAT/PHELPS/BA/BI LAT EAR PAIN DIARRHEA cp, neuro s/s, allergic reaction? EST NEW PT - NEEDS PPWK Reason for Visit Acute sinusitis Cognitive complaints Screening declined by patient Immunization declined Smokes cigarettes Screening for cardiovascular condition Establishing care with new doctor, encounter for Fatigue Hyponatremia Atypical chest pain Chief Complaint Admit Date NEW DAILY PERSISTENT HEADACHE July 09 1:07pm Chief Complaint Admit Date NEW DAILY PERSISTENT HEADACHE July 09 1:07pm XRAY CERVICAL SPINE & LUMBAR/SACRAL 3 EWS August 17, 2024 9:46am Advance Directives No Advanced Directives Records Found Advance Directive Response Recorded Date/ Time Living Will No August 22, 2021 1:37am Power of Data Warehousing Engineer No August 22 1:37am Advance Directive Response Recorded Date/ Time Living Will No October 20 9:08pm Power of Data Warehousing Engineer No October 20 9:08pm Advance Directive Response Recorded Date/ Time Living Will No June 20, 2023 3:27pm Power of Data Warehousing Engineer No June 19 3:27pm Advance Directive Response Recorded Date/ Time Living Will No June 24, 2023 9:43pm Power of Data Warehousing Engineer No June 23 9:43pm Family History No Family History Records Found Relationship Condition Age at Onset Recorded Date/T johnson mother History of blood coagulation disorder Unk nown Hypertension Unknown Disorder of thyroid Unknown Abdominal aortic aneurysm (AAA) Unknown Ulcer of digestive tract with hemorrhage Unknown father Gout Unknown Summary Purpose Additional Source Comments Source Comments (unrecognize d section and content) In the event this informatio n is protected by the Federal Confidentiality of Alcohol and Drug Abuse Patient Records regulations: The Federal rules restrict any use of the information to criminally investigate or prosecute any alcohol or drug abuse patient.[facility] the event this information is protected by the Federal Confidentiality of Alcohol and Drug Abuse Patient Records regulations: The Federal rules restrict any use of the information to criminally investigate or prosecute any alcohol or drug abuse patient.[facility] the event this information is protected by the Federal Confidentiality of Alcohol and Drug Abuse Patient Records regulations: The Federal rules restrict any use of the information to criminally investigate or prosecute any alcohol or drug abuse patient.[facility] the event this information is protected by the Federal Confidentiality of Alcohol and Drug Abuse Patient Records regulations: The Federal rules restrict any use of the information to criminally investigate or prosecute any alcohol or drug abuse patient.[facility] Reason for Visit (unrecogniz ed section and content) Reason Comments Sinus Problem Reason Comments Follow-up Pt presents today as a follow up for C-Diff. Pt states that she feels better from the C-Diff, but she does have complaints of soft, crumbly stool. Pt states she is still having digestive issues, including abdominal pain (different locations each time, although it presents mostly in the belly button area), heartburn, and stool change (pt has pictures of this). Pt states that when she is feeling pain, stool becomes hard and painful. Pt has tried the fod diet and was never able to find a cause. Care Teams (unrecognized sec tion and content) Business Continuity Analyst Relationship Specialty Start Date End Date Debra Betts MD [address] [place] [address] PCP - General Family Practice 11/08/16 Business Continuity Analyst Relationship Specialty Start Date End Date Debra Betts MD [address] [place] [address] PCP - General Family Practice 11/08/16 Business Continuity Analyst Relationship Specialty Start Date End Date Debra Betts MD [address] [place] [address] PCP - General Family Medicine 11/08/16 Team Status: Active Member Role Status Dates No Primary Care Physician Family Provider Active No Primary Care Physician Primary Care Provider Active Team Status: Inactive Member Role Status Dates Dr. Debra Betts MD Primary Care Provider, Referri Provider Active [employer] [place] Attending Provider Active Team Status: Inactive Member Role Status Dates Dr. Adria Yin DO Emergency Provider Active No Primary Care Physician Primary Care Provider Active Team Status: Active Member Role Status Dates No Primary Care Physician Family Provider Active Dr. Henny Rahman MD Primary Care Provider Active Team Status: Inactive Member Role Status Dates Dr. Henny Rahman MD Primary Care Provider Active Dr. Tyler Aguilera DO Emergency Provider Active Team Status: Inactive Member Role Status Dates Dr. Henny Rahman MD Primary Care Pro vider, Attending Provider, Referring Provider Active Team Status: Inactive Member Role Status Dates Dr. Adria Yin DO Attending Provider, Emergency Pro vider Active No Primary Care Physician Primary Care Provider Active Team Status: Inactive Member Role Status Dates Dr. Henny Rahman MD Primary Care Provider Active Dr. Tyler Aguilera , Attending Provider, Emergency Provider Active Team Status: Inactive Member Role Status Dates Dr. Henny Rahman MD Primary Care Provider, Attendi ng Provider Active Business Continuity Analyst Relationship Specialty Start Date End Date Debra Betts MD [address] [place] [address] PCP - General Family Medicine 11/08/16 Business Continuity Analyst Relationship Specialty Start Date End Date Shane Florian, [employer]ICE SALES REPRESENTATIVE [address] [place] [id number] PCP - General Family Medicine 02/18/24 Team Status: Active Member Role Status Dates Dr. Henny Rahman MD Primary Care Provider Active Team Status: Inactive Member Role Status Dates Dr. Henny Rahman MD Primary Care Provider Active Start: April 23, 2024 End: April 23, 2024 Dr. Braden Soliman DO Attending Provider Active S tart: April 23, 2024 End: April 23, 2024 Dr. Braden Soliman DO Referring Provider Active S tart: April 23, 2024 End: April 23, 2024 Team Status: Inactive Member Role Status Dates Dr. Henny Rahman MD Primary Care Provider Active Start: July 09, 2024 End: July 09, 2024 Shane Florian CHOKE SETTER, CHOKE SETTER-C Attending Provider Active Start: July 09, 2024 End: July 09, 2024 Shane Florian CHOKE SETTER, CHOKE SETTER-C Referring Provider Active Start: July 09, 2024 End: July 09, 2024 Team Status: Inactive Member Role Status Dates Dr. Henny Rahman MD Primary Care Provider Active Start: August 17, 2024 End: August 17, 2024 CHIQUI KAY Attending Provider Active Star t: August 17, 2024 End: August 17, 2024 Goals (unrecognized section and content) Goals may be documented in a n alternate sectionGoals may be documented in an alternate sectionGoals may be documented in an alternate sectionGoals may be documented in an alternate sectionGoals may be documented in an alternate sectionGoals may be documented in an alternate sectionGoals may be documented in an alternate sectionGoals may be documented in an alternate section INFORMATION SOURCE (unrecogn ized section and content) DATE CREATED AUTHOR 07/21/2023 [facility] DATE CREATED AUTHOR AUTHOR'S ORGANIZ ATION 02/18/[address] [facility] DATE CREATED AUTHOR AUTHOR'S ORGANIZ ATION 02/28/[address] [facility] DATE CREATED AUTHOR AUTHOR'S ORGANIZ ATION 05/02/[address] [facility] DATE CREATED AUTHOR AUTHOR'S ORGANIZ ATION 07/05/2024 [facility] DATE CREATED AUTHOR AUTHOR'S ORGANIZ ATION 10/05/2024 [facility] FOR RECORDS PERTAINING TO PATIENTS WHO ARE OR HAVE BEEN ENROLLED IN A CHEMICAL DEPENDENCY/SUBSTANCEABUSE PROGRAM, SOME INFORMATION MAY BE OMITTED. This clinical summary was aggregated from multiple sources. Caution should be exercised in using it in the provision of clinical care. This summary normalizes information from multiple sources, and as a consequence, information in this document may materially change the coding, format and clinical context of patient data. In addition, data may be omitted in some cases. CLINICAL DECISIONS SHOULD BE BASED ON THE PRIMARY CLINICAL RECORDS. [facility]. provides no warranty or guarantee of the accuracy or completeness of information in this document.
== END | disposition home or self-care (01) ==
PROVIDERS: Referring Provider Podiatrist; Visit Provider Podiatrist
DX: M84.376 Stress fracture, unspecified foot (principal)
CPT/HCPCS: 73718

== ENCOUNTER → 2024-10-22 | Outpatient (CLI) | payer OTHER, SELFPAY ==
--- NOTE | 2024-10-22 06:43 | MRI_ITS ---
PROCEDURE: SPINE CERVICAL (ROUTINE) 10/22/2024 REASON FOR EXAM: PAIN, MYELOPATHY, DEXTERITY CHANGES TECHNIQUE: SPINE CERVICAL (ROUTINE) Multiplanar and multisequence images were obtained without IV contrast administration. FINDINGS: Normal cervical vertebral body height and alignment. Marrow signal within normal limits. No Chiari deformity. Cervical spinal cord normal in both caliber and signal. No demyelination, syrinx or cord compression. Neural foramina are patent. No soft tissue masses are identified. There is subtle annular bulging at C6-7. MRI/Spine Cervical (Routine) IMPRESSION: Mild annular bulging at C6-7 without spinal stenosis. No nerve root compressio n. Negative for significant spinal cord abnormality [facility]
== END | disposition home or self-care (01) ==
LOC: MRI 09:02
PROVIDERS: Referring Provider Student in an Organized Health Care Education/Training Program; Visit Provider Student in an Organized Health Care Education/Training Program
DX: G95.9 Disease of spinal cord, unspecified (principal); M54.12 Radiculopathy, cervical region
CPT/HCPCS: 72141

== ENCOUNTER → 2024-11-16 | Outpatient (CLI) | payer OTHER, SELFPAY ==
--- NOTE | 2024-11-16 16:15 | MRI_ITS ---
PROCEDURE: SPINE LUMBAR (ROUTINE) 11/16/2024 REASON FOR EXAM: PARS DEFECT SPONDY, WORSENING LOW BACK PAIN X1YEAR TECHNIQUE: Procedure Code: MRISPL Modality: MR Procedure: SPINE LUMBAR (ROUTINE) COMPARISON: Radiographs of the lumbar spine dated 10/26/2024 FINDINGS: Vertebrae: The vertebral bodies are normal height. There is no abnormal marrow signal. Alignment: Grade 1 anterolisthesis of L5 on S1 secondary to bilateral pars defects. Lumbar lordosis is otherwise preserved. Conus Medullaris: T12. Distal spinal cord is normal. L1-2: Unremarkable L2-3: Disc spaces unremarkable. There is moderate facet arthropathy and ligamentum flavum hypertrophy without central or foraminal stenosis. L3-4: Disc spaces unremarkable. There is moderate facet arthropathy and ligamentum flavum hypertrophy without central or foraminal stenosis. L4-5: Diffuse disc desiccation and disc bulge. Facet arthropathy and ligamentum flavum hypertrophy. L5-S1: Diffuse disc desiccation and loss of disc space height with uncovering of disc material secondary to anterolisthesis. There is bilateral foraminal stenosis. No central stenosis seen. Sacrum: Normal Paraspinal soft tissues appear unremarkable. There is no retroperitoneal lymphadenopathy or aneurysm. MRI/Spine Lumbar (Routine) IMPRESSION: Grade 1 anterolisthesis of L5 on S1 related to bilateral pars defects with unco vering of disc and bilateral foraminal stenosis and mass effect on both exiting L5 nerve roots. Multilevel facet arthropathy from L3-4 through L5-S1. Mild disc bulge at L4-5 without central or foraminal stenosis. Reading Location: [id number]
== END | disposition home or self-care (01) ==
LOC: MRI 16:13
PROVIDERS: Referring Provider Student in an Organized Health Care Education/Training Program; Visit Provider Student in an Organized Health Care Education/Training Program
DX: M43.10 Spondylolisthesis, site unspecified (principal); M51.362 Other intervertebral disc degeneration, lumbar region with discogenic back pain and lower extremity pain
CPT/HCPCS: 72148